=== PATIENT | male | born 1975 | race Caucasian/White ===

== ENCOUNTER 2017-02-03 07:04 | Observation (INO) | payer OTHER ==
[2017-02-03] MEDS ORDERED: RX INFO: IV CONTRAST WAS GIVEN 1 EACH MISC MISCELLANE PRN (07:42)
[2017-02-03] MEDS ORDERED: SODIUM CHLORIDE 0.9% 1,000 ML IV STA (07:42)
[2017-02-03] MEDS ORDERED: PANTOPRAZOLE 40 MG/10 ML VIAL IVP STA (07:42)
[2017-02-03] MEDS ORDERED: HYDROmorphone 1 MG/ML 1 ML SYRINGE IVP STA (07:42)
--- NOTE | 2017-02-03 07:47 | ED ---
General Adult HPI - General Chief complaint: Abdominal Pain Stated complaint: Abdominal Pain Time Seen by Provider: 02/03/17 07:25 Source: patient, RN notes reviewed Mode of arrival: ambulatory Limitations: no limitations - History of Present Illness Initial comments: Patient is a pleasant 41-year-old male presenting to the emergency department complaining of abdominal discomfort. Symptoms have progressed over the past week. Some nausea. No constipation or diarrhea. Patient has had bloody stools however. Discomfort is mostly in the epigastric region. No anorexia. No fever. Patient does have history of diverticulitis with bowel resection. - Related Data Home Medications Medication Instructions Recorded Confirmed No Known Home Medications [No 02/03/17 02/03/17 Known Home Medications] Allergies Allergy/AdvReac Type Severity Reaction Status Date / Time No Known Allergies Allergy Verified 02/03/17 07:58 Review of Systems ROS Statement: Those systems with pertinent positive or pertinent negative responses have been documented in the HPI. ROS Other: All systems not noted in ROS Statement are negative. Constitutional: Denies: fever Eyes: Denies: eye pain ENT: Denies: ear pain Respiratory: Denies: cough Cardiovascular: Denies: chest pain Endocrine: Denies: fatigue Gastrointestinal: Reports: abdominal pain, nausea, hematochezia Genitourinary: Denies: dysuria Musculoskeletal: Denies: back pain Skin: Denies: lesions Neurological: Denies: headache Past Medical History Past Medical History: Osteoarthritis (OA) Additional Past Medical History / Comment(s): HX OF Diverticulitis, colitis, ARTHIRITIS IN NECK. History of Any Multi-Drug Resistant Organisms: MRSA Date of last positivie culture/infection: neck MDRO Source:: 2012 Past Surgical History: Orthopedic Surgery Additional Past Surgical History / Comment(s): NOSE SURGERY. L ANKLE SURGERY 1998. [id number] 07/22/16, 08-08-16 LOW ANT BOWEL RESECTION Additional Past Anesthesia/Blood Transfusion Reaction / Comment(s): PT HAS NO ADVERSE REACTION TO ANESTHESIA EXCEPT A"FIGHTER" WHEN I WAKE UP. NEVER RECEIVED BLOOD PRODUCTS. Past Psychological History: Anxiety Smoking Status: Current every day smoker Past Alcohol Use History: Occasional Additional Past Alcohol Use History / Comment(s): SMOKES 1PPD FOR PAST 24 YRS Past Drug Use History: Marijuana Additional Drug Use History / Comment(s): DAILY MARIJUANA SMOKER-10 JOINTS A DAY. - Past Family History Father Family Medical History: No Reported History Mother Family Medical History: Diabetes Mellitus General Exam Limitations: no limitations General appearance: alert, in no apparent distress Head exam: Present: atraumatic Eye exam: Present: normal appearance, PERRL ENT exam: Present: normal oropharynx Neck exam: Present: normal inspection Respiratory exam: Present: normal lung sounds bilaterally Cardiovascular Exam: Present: regular rate, normal rhythm GI/Abdominal exam: Present: soft. Absent: tenderness Rectal exam: Present: normal inspection (Limited stool on exam) Extremities exam: Present: normal inspection. Absent: pedal edema, calf tenderness Neurological exam: Present: alert Psychiatric exam: Present: normal affect, normal mood Skin exam: Absent: rash Course Vital Signs 02/03/17 07:10 Temperature 98.0 F Pulse Rate 80 Respiratory 18 Rate Blood Pressure 136/92 O2 Sat by Pulse 98 Oximetry Medical Decision Making - Medical Decision Making Patient reexamined and resting comfortably in bed. Abdomen soft and nontender. Case discussed in detail with Dr. Jensen, who will admit his patient with consult with Dr. Zamora - Lab Data Result diagrams: 02/03/17 08:00 02/03/17 08:00 Lab Results 02/03/17 02/03/17 02/03/17 Range/Units 08:00 08:00 08:00 WBC 7.0 (3.8-10.6) k/uL RBC 4.82 (4.30-5.90) m/uL Hgb 14.3 (13.0-17.5) gm/dL Hct 43.5 (39.0-53.0) % MCV 90.4 (80.0-100.0) fL MCH 29.7 (25.0-35.0) pg MCHC 32.8 (31.0-37.0) g/dL RDW 13.7 (11.5-15.5) % Plt Count 251 (150-450) k/uL Neutrophils % 62 % Lymphocytes % 28 % Monocytes % 6 % Eosinophils % 2 % Basophils % 1 % Neutrophils # 4.3 (1.3-7.7) k/uL Lymphocytes # 1.9 (1.0-4.8) k/uL Monocytes # 0.4 (0-1.0) k/uL Eosinophils # 0.2 (0-0.7) k/uL Basophils # 0.0 (0-0.2) k/uL PT 10.1 (9.0-12.0) sec INR 1.0 (<1.1) APTT 30.0 (22.0-30.0) sec Sodium 144 (137-145) mmol/L Potassium 4.3 (3.5-5.1) mmol/L Chloride 109 H (98-107) mmol/L Carbon Dioxide 26 (22-30) mmol/L Anion Gap 9 mmol/L BUN 11 (9-20) mg/dL Creatinine 0.84 (0.66-1.25) mg/dL Est GFR (MDRD) Af Amer >60 (>60 ml/min/1.73 sqM) Est GFR (MDRD) Non-Af >60 (>60 ml/min/1.73 sqM) Glucose 86 (74-99) mg/dL Calcium 8.9 (8.4-10.2) mg/dL Total Bilirubin 0.4 (0.2-1.3) mg/dL AST 24 (17-59) U/L ALT 31 (21-72) U/L Alkaline Phosphatase 72 (38-126) U/L Total Protein 6.8 (6.3-8.2) g/dL Albumin 4.0 (3.5-5.0) g/dL Amylase 65 (30-110) U/L Lipase 171 (23-300) U/L Stool Occult Blood (Negative) 02/03/17 Range/Units 08:10 WBC (3.8-10.6) k/uL RBC (4.30-5.90) m/uL Hgb (13.0-17.5) gm/dL Hct (39.0-53.0) % MCV (80.0-100.0) fL MCH (25.0-35.0) pg MCHC (31.0-37.0) g/dL RDW (11.5-15.5) % Plt Count (150-450) k/uL Neutrophils % % Lymphocytes % % Monocytes % % Eosinophils % % Basophils % % Neutrophils # (1.3-7.7) k/uL Lymphocytes # (1.0-4.8) k/uL Monocytes # (0-1.0) k/uL Eosinophils # (0-0.7) k/uL Basophils # (0-0.2) k/uL PT (9.0-12.0) sec INR (<1.1) APTT (22.0-30.0) sec Sodium (137-145) mmol/L Potassium (3.5-5.1) mmol/L Chloride (98-107) mmol/L Carbon Dioxide (22-30) mmol/L Anion Gap mmol/L BUN (9-20) mg/dL Creatinine (0.66-1.25) mg/dL Est GFR (MDRD) Af Amer (>60 ml/min/1.73 sqM) Est GFR (MDRD) Non-Af (>60 ml/min/1.73 sqM) Glucose (74-99) mg/dL Calcium (8.4-10.2) mg/dL Total Bilirubin (0.2-1.3) mg/dL AST (17-59) U/L ALT (21-72) U/L Alkaline Phosphatase (38-126) U/L Total Protein (6.3-8.2) g/dL Albumin (3.5-5.0) g/dL Amylase (30-110) U/L Lipase (23-300) U/L Stool Occult Blood Positive (Negative) - Radiology Data Radiology results: report reviewed (Computed tomography scan of the abdomen pelvis shows diverticulosis without acute diverticulitis. Some narrowing at the rectosigmoid anastomosis is not excluded.) Disposition Clinical Impression: Lower GI hemorrhage Disposition: ADMITTED IP TO THIS HOSP
[2017-02-03 08:23] LABS: Basophils % (A) 1 %; CHCM 33.3; Eosinophils # (A) 0.2 k/uL (0-0.7); Eosinophils % (A) 2 %; HCT 43.5 % (39.0-53.0); HDW 2.41; HGB 14.3 gm/dL (13.0-17.5); Luc % (Auto) 2; Lymphocytes # (A) 1.9 k/uL (1.0-4.8); Lymphocytes % (A) 28 %; MCH 29.7 pg (25.0-35.0); MCHC 32.8 g/dL (31.0-37.0); MCV 90.4 fL (80.0-100.0); Mean Platelet Volume 7.5; Monocytes # (A) 0.4 k/uL (0-1.0); Monocytes % (A) 6 %; Neutrophils # (A) 4.3 k/uL (1.3-7.7); Neutrophils % (A) 62 %; RBC 4.82 m/uL (4.30-5.90); RDW 13.7 % (11.5-15.5); WBC (Perox) 6.93
[2017-02-03 08:29] LABS: Prothrombin Time 10.1 sec (9.0-12.0)
[2017-02-03 08:36] LABS: ALT 31 U/L (21-72); AST 24 U/L (17-59); Alkaline Phosphatase 72 U/L (38-126); Amylase 65 U/L (30-110); Anion Gap 9 mmol/L; Blood Urea Nitrogen 11 mg/dL (9-20); Calcium 8.9 mg/dL (8.4-10.2); Carbon Dioxide 26 mmol/L (22-30); Chloride 109 mmol/L (98-107); Glucose 86 mg/dL (74-99); Non-African American GFR(MDRD) >60 (>60 ml/min/1.73 sqM); Potassium 4.3 mmol/L (3.5-5.1); Sodium 144 mmol/L (137-145); Total Bilirubin 0.4 mg/dL (0.2-1.3); Total Protein 6.8 g/dL (6.3-8.2)
--- NOTE | 2017-02-03 08:53 | CT ---
EXAMINATION TYPE: CT abdomen pelvis w con DATE OF EXAM: 02/03/2017 8:40 AM COMPARISON: 07/22/2016 INDICATION: History of diverticulitis and Crohns disease DLP: 1677 mGycm, Automated exposure control for dose reduction was used. CONTRAST: 100 ml mL of Omnipaque 300. Study performed without Oral Contrast TECHNIQUE: Axial images were obtained from above the diaphragm to the pubic rami in the axial plane a t 5 mm thick sections. Reconstructed images are reviewed on the computer in the coronal plane. FINDINGS: Limited CT sections are obtained the lung bases. The lung bases are clear. CT ABDOMEN: Liver: Normal Spleen: Calcification is within the spleen compatible with a tiny granuloma. Pancreas: Normal Adrenal glands: The adrenal glands are normal. Gallbladder: Normal Kidneys: No masses are evident. No hydronephrosis is present. No cysts are present. Aorta: Normal Inferior vena cava: Normal. CT PELVIS: Loops of bowel within the abdomen and pelvis are normal. Study is performed without oral contrast limiting the evaluation of bowel loops. Some fecal debris is within the colon. Scattered diverticuli are within the proximal sigmoid colon. There is an anastomosis within the mid to distal sigmoid colo n. Some narrowing is present just distal to the anastomosis. A large fecal bolus at the level the rec ashu. There is some low density within the sigmoid colon just proximal to the anastomosis. Series 3 im age 70. This could be a minimal amount of fluid. Underlying mass is not excluded. No perirectal fat a bnormality is evident. No lymphadenopathy is evident within the pelvis. Appendix: Normal as visualized. Urinary bladder: Normal. Genitourinary structures: Prostate appears normal Osseous structures: There are couple of sclerotic areas along the superior acetabulum on the left. [place] in sclerotic metastases could be considered. These were present previously and appear stab le. Osseous structures otherwise appear unremarkable. IMPRESSIONS: 1. Some narrowing at the recto sigmoid anastomosis is not excluded. Follow-up of this area is recomm ended. Large fecal bolus at the rectum suggesting high-grade narrowing is unlikely present. No obstru ction is identified. 2. Diverticulosis without acute diverticulitis proximal to mid sigmoid colon.
[2017-02-03] MEDS ORDERED: MORPHINE SULFATE 4 MG/ML SYRINGE IV PRN (09:12)
[2017-02-03] MEDS ORDERED: NALOXONE 0.4 MG/ML 1 ML VIAL IV PRN (09:12)
[2017-02-03] MEDS ORDERED: SODIUM CHLORIDE 0.9% 1,000 ML IV SCH (09:15)
[2017-02-03 10:49] LABS: Appearance,Urine Clear (Clear); Bilirubin,Urine Negative (Negative); Glucose,Urine (UA) Negative (Negative); Ketones,Urine Negative (Negative); Leukocyte Esterase,Urine Negative (Negative); Nitrite,Urine Negative (Negative); PH, Urine 6.5 (5.0-8.0); Protein,Urine Negative (Negative); Specific Gravity,Urine 1.022 (1.001-1.035); UA Billing (MACRO vs. MICRO) CHEM; Urobilinogen,Urine <2.0 mg/dL (<2.0)
[2017-02-03] MEDS ORDERED: ACETAMINOPHEN TAB 325 MG TAB PO PRN (11:29)
[2017-02-03] MEDS ORDERED: ONDANSETRON 4 MG/2 ML VIAL IVP PRN (11:29)
[2017-02-03 15:02] LABS: Basophils % (A) 0 %; CH 30.5; CHCM 33.5; Eosinophils # (A) 0.2 k/uL (0-0.7); Eosinophils % (A) 3 %; HCT 41.8 % (39.0-53.0); HDW 2.48; HGB 13.9 gm/dL (13.0-17.5); Luc # (Auto) 0.12; Luc % (Auto) 2; Lymphocytes # (A) 2.6 k/uL (1.0-4.8); Lymphocytes % (A) 41 %; MCH 30.4 pg (25.0-35.0); MCHC 33.2 g/dL (31.0-37.0); MCV 91.6 fL (80.0-100.0); Mean Platelet Volume 7.9; Monocytes # (A) 0.4 k/uL (0-1.0); Monocytes % (A) 6 %; Neutrophils # (A) 3.1 k/uL (1.3-7.7); Neutrophils % (A) 49 %; RBC 4.56 m/uL (4.30-5.90); RDW 13.4 % (11.5-15.5); WBC 6.4 k/uL (3.8-10.6)
--- NOTE | 2017-02-03 15:16 | P.HPIM ---
History of Present Illness H&P Date: 02/03/17 Chief Complaint: pain This is a 41-year-old gentleman with past medical history noted below significant for partial colectomy in July 2016 and presented to the hospital with acute epigastric abdominal pain. Patient said his pain started a few days ago is being getting progressively worse. Pain was associated with nausea but no vomiting. Over the past few days patient had 2 episodes of diarrhea but otherwise is having normal bowel movement. His pain is not radiating anywhere in his abdomen. He denies any black stool or blood in stool. He denies any dizziness or lightheadedness. He presented to the emergency room for further evaluation. Lab work was within acceptable range. Computed tomography scan of the abdomen showed no significant acute findings. Hemoccult test was positive so patient was admitted to observation. Repeat CBC showed stable hemoglobin. Review of Systems Review of system: 14 points review of systems were obtained and were negative except to what were mentioned in the HPI. Past Medical History Past Medical History: GI Bleed, Osteoarthritis (OA) Additional Past Medical History / Comment(s): HX OF Diverticulitis, colitis, ARTHIRITIS IN NECK, lower GI bleeds. History of Any Multi-Drug Resistant Organisms: MRSA Date of last positivie culture/infection: neck MDRO Source:: 2012 Past Surgical History: Bowel Resection, Orthopedic Surgery Additional Past Surgical History / Comment(s): NASAL SURGERY. L ANKLE SURGERY 1998. COLONOSCOPies with last one 07/22/16, 08-08-16 LOW ANT BOWEL RESECTION Additional Past Anesthesia/Blood Transfusion Reaction / Comment(s): PT HAS NO ADVERSE REACTION TO ANESTHESIA EXCEPT A"FIGHTER" WHEN I WAKE UP. NEVER RECEIVED BLOOD PRODUCTS. Past Psychological History: Anxiety Additional Psychological History / Comment(s): Pt lives with significant other. He is independent. Smoking Status: Current every day smoker Past Alcohol Use History: Occasional Additional Past Alcohol Use History / Comment(s): SMOKES 1PPD since 1991 Past Drug Use History: Marijuana Additional Drug Use History / Comment(s): DAILY MARIJUANA SMOKER-10 JOINTS A DAY. - Past Family History Father Family Medical History: No Reported History Additional Family Medical History / Comment(s): Father is healthy. Mother Family Medical History: Diabetes Mellitus Additional Family Medical History / Comment(s): Mother is a borderline diabetic. Medications and Allergies Home Medications Medication Instructions Recorded Confirmed Type No Known Home Medications [No 02/03/17 02/03/17 History Known Home Medications] Allergies Allergy/AdvReac Type Severity Reaction Status Date / Time No Known Allergies Allergy Verified 02/03/17 07:58 Physical Exam Vitals: Vital Signs Temp Pulse Pulse Resp BP BP Pulse Ox 02/03/17 12:00 97.5 F L 64 16 134/68 98 02/03/17 10:44 61 16 137/89 99 02/03/17 10:00 97.0 F L 70 16 149/84 98 Intake and Output 02/03/17 02/03/17 02/03/17 06:59 14:59 22:59 Intake Total 300 Balance 300 Intake: Oral 300 Other: Voiding Method Toilet Weight 111.9 kg Patient Weight 02/04/17 06:59 Weight 111.9 kg General: The patient is awake and alert, in no distress, and does not appear acutely ill. Eye: extra-ocular movements are intact; there is normal conjunctiva bilaterally. . Neck: The neck is supple, there is no tenderness or JVD. Cardiovascular: Normal S1-S2, no S3-S4, no murmurs. Respiratory: Lungs clear to auscultation bilaterally with no wheezes rhonchi or rales. Gastrointestinal: Abdomen is soft, nontender, nondistended, with no organomegaly. . Musculoskeletal: Normal ROM, no tenderness, There is no pedal edema. Neurological: There are no obvious motor or sensory deficits. Speech is normal. Skin: Skin is warm and dry and no rashes or lesions are noted. Results CBC & Chem 7: 02/03/17 14:50 02/03/17 08:00 Thrombosis Risk Factor Assmnt - Choose All That Apply Any of the Below Risk Factors Present?: Yes Each Factor Represents 1 point: Hx of IBD, Obesity (BMI >25) Other Risk Factors: No Other congenital or acquired thrombophilia - If yes, enter type in comment: No Thrombosis Risk Factor Assessment Total Risk Factor Score: 2 Thrombosis Risk Factor Assessment Level: Low Risk Assessment and Plan Plan: 1. Acute nausea, epigastric discomfort, and diarrhea, now symptoms have improved. May be attributed to acute viral gastroenteritis. We'll continue supportive care, IV fluids, antiemetic, and pain control. 2. History of recurrent diverticulitis status post Anterior resection in July 2017 3. Positive Hemoccult test with no evidence of ongoing bleed. Hemoglobin stable. Awaiting evaluation by general surgery
[2017-02-03] MEDS: MORPHINE SULFATE 4 MG/ML SYRINGE IV PRN ×3 (15:36→23:58)
--- NOTE | 2017-02-03 16:24 | P.GSCN ---
History of Present Illness Consult date: 02/03/17 Reason for Consult: Abdominal pain History of present illness: Patient brought to the hospital with complaints of epigastric abdominal pain. This is associated with nausea and anorexia. No vomiting. No history of similar events in the past. He did have a sigmoid colectomy done for diverticulitis in the fall. He said this is a different type of feeling. Denies constipation despite a CAT scan suggesting maybe some degree of constipation. Says he has 2-3 bowel movement per day. He did a recent black colored stool. Pain began about 1 week ago. No history of ulcer disease in the past. No prior upper endoscopy. Patient's white blood cell count and hemoglobin are stable. He was heme positive. Past Medical History Past Medical History: GI Bleed, Osteoarthritis (OA) Additional Past Medical History / Comment(s): HX OF Diverticulitis, colitis, ARTHIRITIS IN NECK, lower GI bleeds. History of Any Multi-Drug Resistant Organisms: MRSA Year Discovered:: neck MDRO Source:: 2012 Past Surgical History: Bowel Resection, Orthopedic Surgery Additional Past Surgical History / Comment(s): NASAL SURGERY. L ANKLE SURGERY 1998. COLONOSCOPies with last one 07/22/16, 08-08-16 LOW ANT BOWEL RESECTION Additional Past Anesthesia/Blood Transfusion Reaction / Comm: PT HAS NO ADVERSE REACTION TO ANESTHESIA EXCEPT A"FIGHTER" WHEN I WAKE UP. NEVER RECEIVED BLOOD PRODUCTS. Past Psychological History: Anxiety Additional Psychological History / Comment(s): Pt lives with significant other. He is independent. Smoking Status: Current every day smoker Past Alcohol Use History: Occasional Additional Past Alcohol Use History / Comment(s): SMOKES 1PPD since 1991 Past Drug Use History: Marijuana Additional Drug Use History / Comment(s): DAILY MARIJUANA SMOKER-10 JOINTS A DAY. - Past Family History Father Family Medical History: No Reported History Additional Family Medical History / Comment(s): Father is healthy. Mother Family Medical History: Diabetes Mellitus Additional Family Medical History / Comment(s): Mother is a borderline diabetic. Medications and Allergies Home Medications Medication Instructions Recorded Confirmed Type No Known Home Medications [No 02/03/17 02/03/17 History Known Home Medications] Allergies Allergy/AdvReac Type Severity Reaction Status Date / Time No Known Allergies Allergy Verified 02/03/17 07:58 Surgical - Exam Vital Signs Temp Pulse Resp BP Pulse Ox 98.0 F 80 18 136/92 98 02/03/17 07:10 02/03/17 07:10 02/03/17 07:10 02/03/17 07:10 02/03/17 07:10 Physical exam: General: Well-developed, well-nourished HEENT: Normocephalic, sclerae nonicteric Abdomen: Mild epigastric tenderness, nondistended Extremities: No edema Neuro: Alert and oriented Results - Labs 02/03/17 14:50 02/03/17 08:00 Assessment and Plan (1) Abdominal pain Narrative/Plan: The patient I discussed the options. We decided to proceed with upper endoscopy tomorrow to evaluate for possible ulcer disease. Continue antiacid therapy for now. Status: Acute
[2017-02-03] MEDS: LORazepam 0.5 MG TAB PO PRN (17:26)
[2017-02-03] MEDS: NICOTINE 14MG/24HR PATCH TRANSDERM SCH (17:31)
[2017-02-03] MEDS ORDERED: LORazepam 0.5 MG TAB PO SCH (21:00)
[2017-02-04] MEDS: MORPHINE SULFATE 4 MG/ML SYRINGE IV PRN ×2 (03:46→08:32)
[2017-02-04 08:05] VITALS: TEMP 97.5
[2017-02-04 08:11] LABS: Basophils % (A) 1 %; CH 30.6; CHCM 33.5; Eosinophils # (A) 0.2 k/uL (0-0.7); Eosinophils % (A) 3 %; HCT 45.5 % (39.0-53.0); HGB 15.1 gm/dL (13.0-17.5); Luc # (Auto) 0.14; Luc % (Auto) 2; Lymphocytes # (A) 2.3 k/uL (1.0-4.8); Lymphocytes % (A) 36 %; MCH 30.4 pg (25.0-35.0); MCHC 33.1 g/dL (31.0-37.0); MCV 91.6 fL (80.0-100.0); Mean Platelet Volume 7.5; Monocytes # (A) 0.3 k/uL (0-1.0); Monocytes % (A) 5 %; Neutrophils # (A) 3.4 k/uL (1.3-7.7); Neutrophils % (A) 54 %; RBC 4.97 m/uL (4.30-5.90); RDW 13.6 % (11.5-15.5); WBC 6.4 k/uL (3.8-10.6); WBC (Perox) 6.63
[2017-02-04] MEDS: NICOTINE 14MG/24HR PATCH TRANSDERM SCH (08:33)
[2017-02-04] MEDS: LORazepam 0.5 MG TAB PO PRN (08:46)
[2017-02-04] MEDS ORDERED: NICOTINE 14MG/24HR PATCH TRANSDERM SCH (09:00)
[2017-02-04] MEDS ORDERED: PANTOPRAZOLE 40 MG/10 ML VIAL IV SCH (09:00)
--- NOTE | 2017-02-04 11:02 | P.PN ---
Subjective Patient continues to complain of significant epigastric pain. Hemoglobin is stable. No vomiting. Objective - Vital Signs Vital signs: Vital Signs Temp 97.5 F L 02/04/17 08:00 Pulse 61 02/04/17 08:00 Resp 18 02/04/17 08:00 BP 143/97 02/04/17 08:00 Pulse Ox 97 02/04/17 08:00 Intake & Output 02/03/17 02/04/17 02/04/17 18:59 06:59 18:59 Intake Total 540 Balance 540 Weight 111.9 kg Intake: Oral 540 Other: Voiding Method Toilet Toilet Toilet # Voids 1 - Exam General: The patient is awake and alert, in no distress Eye: there is normal conjunctiva bilaterally. Neck: The neck is supple, there is no JVD. Cardiovascular: Normal S1-S2, no S3-S4, no murmurs. Respiratory: Lungs clear to auscultation bilaterally Gastrointestinal: Abdomen is soft, nontender Musculoskeletal: There is no pedal edema. Neurological:. Speech is normal. Skin: Skin is warm and dry - Labs CBC & Chem 7: 02/04/17 07:43 02/03/17 08:00 Assessment and Plan Plan: 1. Acute nausea, epigastric discomfort, and diarrhea, now symptoms have improved. May be attributed to acute viral gastroenteritis. We'll continue supportive care, IV fluids, antiemetic, and pain control. 2. History of recurrent diverticulitis status post Anterior resection in July 2017 3. Positive Hemoccult test with no evidence of ongoing bleed. Hemoglobin stable. Patient was seen and evaluated by general surgery. Plan for EGD later on today.
[2017-02-04] MEDS ORDERED: PROPOFOL 10 MG/ML 20 ML VIAL IV ONE (11:57)
[2017-02-04] MEDS ORDERED: KETAMINE 10 MG/ML 20 ML VIAL ONE (11:57)
[2017-02-04] MEDS ORDERED: LIDOCAINE 1% INJ 10MG/ML (20 ML MDV) ONE (11:57)
[2017-02-04] MEDS ORDERED: MIDAZOLAM 2 MG/2 ML VIAL ONE (11:57)
[2017-02-04] MEDS ORDERED: IV FLUID CONTINUATION 100 ML IV ONE (12:00)
--- NOTE | 2017-02-04 12:20 | P.PCN ---
Date of Procedure: 02/04/17 Procedure(s) Performed: Preoperative Dx: Abdominal pain Postoperative Dx: Duodenitis, gastritis Procedure: EGD with Bx Anesthesia: Sedation Endoscopist: Dr. Fry Specimens: , Antrum Endoscopic Procedure: The patient was on the endoscopy table in the left decubitus position. The Olympus gastroscope was inserted into the oropharynx and passed under direct visualization to the region of the third portion of the duodenum. From that point the scope was slowly withdrawn inspecting all surfaces carefully. There was mild duodenitis. A few small erosions were seen without large ulceration. A biopsy of the duodenum took place. The pylorus was widely patent. The stomach was carefully inspected. There was gastritis present as well. A biopsy of the antrum took place to rule out H. pylori. Retroflexion revealed a normal hiatus. The esophagus was then carefully examined. There were no neoplastic inflammatory or polypoid lesions throughout the visualized esophagus. The patient was then taken to the recovery room in stable condition per anesthesia guidelines. Recommendations: Continue antiacid therapy. Resume diet. Stable for discharge.
[2017-02-04] MEDS ORDERED: IV FLUID CONTINUATION 1,000 ML IV ONE (12:21)
[2017-02-04 12:56] VITALS: RESP 16
[2017-02-04 13:15] VITALS: BP 139/96; PULSE 67
== END 2017-02-04 15:42 | disposition left against medical advice (07) ==
LOC: EC 07:04 → 3OBS 09:13
PROVIDERS: ADMIT Internal Medicine; ATTEND Internal Medicine
DX: K29.70 Gastritis, unspecified, without bleeding (principal); K29.80 Duodenitis without bleeding; K57.92 Diverticulitis of intestine, part unspecified, without perforation or abscess without bleeding; F17.200 Nicotine dependence, unspecified, uncomplicated; F41.9 Anxiety disorder, unspecified; Z90.49 Acquired absence of other specified parts of digestive tract; F12.90 Cannabis use, unspecified, uncomplicated; R63.0 Anorexia
CPT/HCPCS: 96374 ×2; 96375 ×3; 96361 ×4; 99285 ×2; 36415; 88305; 80053; 82150; 83690; 85025 ×2; 85610; 85730; 82272; 81003; 88342; 74177; 43239; G0378 ×2; S4990 ×2; J2250; J2270 ×2; J2001; J1170; Q9967; J2704; C9113 ×2; 96376

== ENCOUNTER → 2018-12-03 | Outpatient (CLI) | payer OTHER ==
--- NOTE | 2018-12-03 19:38 | CONS ---
CONSULTATION DATE OF SERVICE: 12/03/2018 This patient is a 43-year-old gentleman who has been evaluated in the sleep center for possible obstructive sleep apnea-hypopnea syndrome. HISTORY OF PRESENT ILLNESS/SLEEP-WAKE EVALUATION: Patient's usual sleep schedule is from 10 p.m. to 5 or 6 a.m. basically 7 days a week. No problem with falling asleep, although he has a TV set in the bedroom. He sleeps in different positions, usually on his side, with snoring, witnessed episodes by his of stopped breathing during sleep. He wakes up from sleep around 10 times with dry mouth, sweating, panic attacks. He has multiple episodes of nocturia. He also moves constantly during sleep, possibly [id number] movements. Sometimes the patient starts to see his dreams right after closing his eyes. No history of sleep paralysis or cataplexy. In the morning, patient wakes up tired, has difficulties paying attention, falling asleep during the day, worries about his sleep, has problems with memory, concentration, irritability, anxiety. [place] Sleepiness Scale is significantly increased to 20. PAST MEDICAL HISTORY: Positive for: 1. Diverticulitis. 2. Nasal cyst. 3. Left ankle fracture. SURGICAL HISTORY: 1. Bowel resection for diverticulitis in 2016. 2. Multiple nasal surgeries for cysts in childhood. MEDICATIONS: None. SOCIAL HISTORY: Positive for smoking for about 25 pack/years. Alcohol consumption rarely. FAMILY HISTORY: Hypertension, angina, heart problems, hyperlipidemia, arthritis, emphysema, snoring, pneumonia, diabetes. REVIEW OF SYSTEMS: Multiple awakenings from sleep. Significant excessive daytime sleepiness. PHYSICAL EXAMINATION: GENERAL: A pleasant gentleman without distress. VITAL SIGNS: BP 161/105, HR 87, RR 16, height 6 feet 1 inch, weight 278, body mass index 36.6, temperature 98.1, oxygen saturation at room air 95%. HEENT: PERRLA, EOMI. Evaluation of oropharynx showed tongue protrudes midline. Low position of soft palate. Telescopic uvula. Tonsils slightly hypertrophic, present bilaterally. Restriction of nasal breathing. NECK: Supple. No JVD. Thyroid is not palpable. Wide neck; 20 inches in circumference. LUNGS: Clear to percussion and to auscultation. Good air exchange. No wheezing or rhonchi. HEART: S1, S2 regular. No murmurs, gallops or rubs. ABDOMEN: Obese. EXTREMITIES: No clubbing or cyanosis. IMPROVEMENT LEADER: Awake, alert, and oriented X3. Cranial nerves 2 to 7 intact. There is no fasciculation or atrophy. noted. No focal deficits observed. IMPRESSION: 1. Snoring, witnessed episodes of stopped breathing during sleep, small oropharyngeal air space, wide neck, sleepiness; obstructive sleep apnea-hypopnea syndrome. 2. Significant excessive daytime sleepiness. [place] Sleepiness Scale is 20, dictating necessity to include hypersomnia and narcolepsy in the differential diagnosis, especially with positive history of hypnagogic hallucinations. 3. Obesity; body mass index 36.6. 4. History of diverticulitis, status post bowel resection in 2016. 5. Status post recent fracture of right elbow with a fracture of the radius. 6. Restriction of nasal breathing. 7. Status post multiple nasal surgeries for nasal cysts in childhood. 8. Smoker for 25 pack/years. PLAN: 1. Polysomnography for evaluation of patient's breathing during sleep. 2. CPAP/BiPAP titration if sleep study confirms obstructive sleep apnea-hypopnea syndrome. 3. Preferable position during sleep on the side. 4. No driving if patient feels any sleepiness. 5. I will see patient for follow up visit to explain results of testing and following plan. 6. We may consider multiple sleep latency test if treatment of sleep apnea does not fix the patient's excessive daytime sleepiness. Sincerely, Sridhar Barrow MD, PhD, FAASM Diplomat of [place] [employer] [employer] Director Of [facility] [place] MMODL / IJN: [id number] /
== END | disposition home or self-care (01) ==
LOC: SLEEP 13:37
PROVIDERS: ATTEND Internal Medicine
DX: G47.33 Obstructive sleep apnea (adult) (pediatric) (principal); E66.9 Obesity, unspecified; F17.210 Nicotine dependence, cigarettes, uncomplicated; Z68.36 Body mass index [BMI] 36.0-36.9, adult; Z87.81 Personal history of (healed) traumatic fracture; Z87.19 Personal history of other diseases of the digestive system; Z90.3 Acquired absence of stomach [part of]; Z98.890 Other specified postprocedural states
CPT/HCPCS: 99211

== ENCOUNTER 2018-12-07 08:41 | Day surgery (SDC) | payer OTHER ==
[2018-12-04 08:28] VITALS: BMI 23.5
[~2018-12-07 08:41] MED LIST: LACTATED RINGERS 1,000 ML IV SCH; LIDOCAINE 1% 20 ML VIAL (10MG/ML) FOR IV START INTRADERMA PRN; MIDAZOLAM (PF) 2 MG/2 ML VIAL IV PRN
[2018-12-07 09:32] VITALS: TEMP 97.7
--- NOTE | 2018-12-07 10:01 | P.GSHP ---
History of Present Illness H&P Date: 12/07/18 Chief Complaint: History of diverticulitis This is a 43-year-old male who presents today for colonoscopy. Patient had a previous history of diverticulitis. Past Medical History Past Medical History: GI Bleed, Osteoarthritis (OA) Additional Past Medical History / Comment(s): HX OF Diverticulitis, colitis, testing for sleep apnea., states broken elbow-following up with History of Any Multi-Drug Resistant Organisms: MRSA Date of last positivie culture/infection: neck MDRO Source:: 2012 Past Surgical History: Bowel Resection, Orthopedic Surgery Additional Past Surgical History / Comment(s): NASAL SURGERY. L ANKLE SURGERY 1998. , LOW ANT BOWEL RESECTION (07/2016) Past Anesthesia/Blood Transfusion Reactions: Previous Problems w/ Anesthesia Additional Past Anesthesia/Blood Transfusion Reaction / Comment(s): STATES THEY HAD TO WAKE HIM UP TO BREATHE- THOUGHT IT WAS DUE TO SLEEP APNEA. Past Psychological History: Anxiety Additional Psychological History / Comment(s): Pt lives with significant other. He is independent. Smoking Status: Heavy tobacco smoker Past Alcohol Use History: Occasional Additional Past Alcohol Use History / Comment(s): SMOKES 1PPD since 1991 Past Drug Use History: Marijuana Additional Drug Use History / Comment(s): CURRENT MARIJUANA USE - Past Family History Father Family Medical History: No Reported History Additional Family Medical History / Comment(s): Father is healthy. Mother Family Medical History: Diabetes Mellitus Additional Family Medical History / Comment(s): Mother is a borderline diabetic. Medications and Allergies Home Medications Medication Instructions Recorded Confirmed Type Ibuprofen [Motrin Ib] 200 mg PO DIRECTED PRN 12/04/18 12/07/18 History Allergies Allergy/AdvReac Type Severity Reaction Status Date / Time No Known Allergies Allergy Verified 12/07/18 08:49 Surgical - Exam Vital Signs Temp Pulse Resp BP Pulse Ox 97.7 F 79 16 158/89 98 12/07/18 08:57 12/07/18 08:57 12/07/18 08:57 12/07/18 08:57 12/07/18 08:57 - General well developed, well nourished, no distress - Eyes PERRL - ENT normal pinna - Neck no masses - Respiratory normal expansion - Cardiovascular Rhythm: regular - Abdomen Abdomen: soft, non tender Assessment and Plan Assessment: History of diverticula is. We'll perform colonoscopy.
[2018-12-07] MEDS ORDERED: LIDOCAINE 1% INJ 10MG/ML (20 ML MDV) ONE (10:02)
[2018-12-07] MEDS ORDERED: PROPOFOL 10 MG/ML 20 ML VIAL IV ONE (10:02)
[2018-12-07 10:49] VITALS: BP 141/93; PULSE 81; RESP 16
--- NOTE | 2018-12-07 11:22 | P.OP ---
Date of Procedure: 12/07/18 Preoperative Diagnosis: History of diverticulitis Postoperative Diagnosis: Diverticulosis, colon polyp Procedure(s) Performed: Colonoscopy Anesthesia: MAC Surgeon: Fahad Zamora Pathology: other (Rectal polyp) Condition: stable Disposition: PACU Description of Procedure: The patient's placed on the endoscopy table in the lateral position. He received IV sedation. Digital rectal exam was performed which revealed no abnormalities. Flexible colonoscope was then placed patient anus and passed throughout the colon. The patient had a rectal polyp this was removed with a forcep. The scope could not be advanced easily through the colorectal anastomosis. At this point decided to perform a barium enema. Scope was withdrawn. Patient top she will was sent to recovery room stable condition.
--- NOTE | 2018-12-09 13:20 | CDI ---
Outpatient Documentation Clarification Form Date: 12/09/18 CDS/Surveillance Inspector Name: Meghan Barrios Phone: If any questions, call Janice Russell [employer] at [phone] Patient Name: Jorge Castro Admit Date: 12/07/18 Discharge Date: 12/07/18 ATTENTION: The [facility] Coding Staff appreciate your assistance in clarifying documentation. Please respond to the clarification below the line at the bottom and electronically sign. The [facility] Coding staff will review the response and follow-up if needed. Please note: Queries are made part of the Legal Health Record. If you have any questions, please contact the [employer]. Dear Dr. Zamora, How far into the colon was the scope advanced? Thank you for your kind consideration. MTDD
== END 2018-12-07 10:58 | disposition home or self-care (01) ==
LOC: ORWHC2ENDO 08:41
PROVIDERS: ATTEND Surgery
DX: K62.1 Rectal polyp (principal); K57.30 Diverticulosis of large intestine without perforation or abscess without bleeding; Z98.0 Intestinal bypass and anastomosis status; Z90.49 Acquired absence of other specified parts of digestive tract; K52.9 Noninfective gastroenteritis and colitis, unspecified; M19.90 Unspecified osteoarthritis, unspecified site; F41.9 Anxiety disorder, unspecified; F17.210 Nicotine dependence, cigarettes, uncomplicated; Z86.14 Personal history of Methicillin resistant Staphylococcus aureus infection
CPT/HCPCS: 45331; 88305; J2001; J2704; 45380

== ENCOUNTER 2019-01-26 15:07 | Inpatient (IN) | payer OTHER ==
--- NOTE | 2019-01-26 15:15 | ED ---
Abdominal Pain HPI - General Chief Complaint: Abdominal Pain Stated Complaint: Abd pain Time Seen by Provider: 01/26/19 15:10 Source: patient Mode of arrival: ambulatory Limitations: no limitations - History of Present Illness Initial Comments: 44-year-old male presenting today for chief complaint of left lower abdominal pain. Patient states she has previous diagnosis of diverticulitis and had a bowel resection performed by Dr. payne in July 2016. Patient states he began experiencing the pain yesterday, he states it has been constant increasing in severity. Patient states he has felt gassy. States his stools been soft and normal denies liquid diarrhea. Denies melena or hematochezia. Denies vomiting. Denies fever chills or night sweats. Patient states this feels similar to his had diverticulitis in the past. Patient decided to present for evaluation. Patient states he did notice a small blood in the stools yesterday. Denies not icing blood today. Remaining review of systems negative, patient denies any recent shortness of breath, chest pain, back pain, numbness or tingling, dysuria or hematuria, constipation or diarrhea, headaches or visual changes, or any other complaints. - Related Data Home Medications Medication Instructions Recorded Confirmed Ibuprofen [Motrin Ib] 200 mg PO Q4H PRN 12/04/18 01/26/19 Allergies Allergy/AdvReac Type Severity Reaction Status Date / Time No Known Allergies Allergy Verified 01/26/19 15:52 Review of Systems ROS Statement: Those systems with pertinent positive or pertinent negative responses have been documented in the HPI. ROS Other: All systems not noted in ROS Statement are negative. Past Medical History Past Medical History: GI Bleed, Osteoarthritis (OA) Additional Past Medical History / Comment(s): HX OF Diverticulitis, colitis, ARTHIRITIS IN NECK, lower GI bleeds. History of Any Multi-Drug Resistant Organisms: MRSA Date of last positivie culture/infection: neck MDRO Source:: 2012 Past Surgical History: Bowel Resection Additional Past Surgical History / Comment(s): NASAL SURGERY. L ANKLE SURGERY 1998. COLONOSCOPies with last one 07/22/16, 08-08-16 LOW ANT BOWEL RESECTION Additional Past Anesthesia/Blood Transfusion Reaction / Comment(s): PT HAS NO ADVERSE REACTION TO ANESTHESIA EXCEPT A"FIGHTER" WHEN I WAKE UP. NEVER RECEIVED BLOOD PRODUCTS. Past Psychological History: Anxiety Smoking Status: Current every day smoker Past Alcohol Use History: None Reported Past Drug Use History: None Reported - Past Family History Father Family Medical History: No Reported History Additional Family Medical History / Comment(s): Father is healthy. Mother Family Medical History: Diabetes Mellitus Additional Family Medical History / Comment(s): Mother is a borderline diabetic. General Exam - General Exam Comments Initial Comments: General: The patient is awake and alert, appears uncomfortable. Eye: Pupils are equal, round and reactive to light, extra-ocular movements are intact. No nystagmus. There is normal conjunctiva bilaterally. No signs of icterus. Ears, nose, mouth and throat: There are moist mucous membranes and no oral lesions. Neck: The neck is supple, there is no tenderness or JVD. Cardiovascular: There is a regular rate and rhythm. No murmur, rub or gallop is appreciated. Respiratory: Lungs are clear to auscultation, respirations are non-labored, breath sounds are equal. No wheezes, stridor, rales, or rhonchi. Gastrointestinal: No noted diaphoresis, jaundice, pallor, protecting postures or squirming. Symmetrical pigmentation of abdomen without signs of inflammation. Large midline scar below the umbilicus. Umbilicus mildline, inverted without swelling. No dilated veins. Abdomen contour obese, no noted abdominal distent ion. No visible masses. No peristalsis, aortic pulsations, or ventral hernia. Bowel sounds audible in all 4 quadrants, unremarkable. Patient is diffusely tender to palpation of the lower abdomen left greater than right to both light and deep palpation no rigidity. Mild guarding. Liver edge, not palpable. Spleen edge, right and left kidney not palpable. Superior bladder margin non-tender. Special Testing: Negative Billingsley, Rovsing, McBurney, Laxmi, cutaneous hyperesthesia. Iliopsoas and obturator tests negative bilaterally. Negative Heel Jar test. No CVA tenderness. Digital rectal exam deferred. Negative parsons turners or cullens sign Musculoskeletal: Normal ROM, no tenderness. Strength 5/5. Sensation intact. Pulses equal bilaterally 2+. Neurological: A&O x 3. CN II-XII intact, There are no obvious motor or sensory deficits. Coordination appears grossly intact. Speech is normal. Skin: Skin is warm and dry and no rashes or lesions are noted. Psychiatric: Cooperative, appropriate mood & affect, normal judgment. Limitations: no limitations Course Vital Signs 01/26/19 01/26/19 15:08 17:07 Temperature 98.0 F 97.9 F Pulse Rate 97 83 Respiratory 22 18 Rate Blood Pressure 151/89 136/89 O2 Sat by Pulse 98 96 Oximetry Medical Decision Making - Medical Decision Making 43-year-old male past medical history of diverticulitis status post resection July 2018. Surgeon Dr. Zamora. After studies reveal leukocytosis. She states pain similar to when he had diverticulitis in the past. Left lower quadrant. Imaging studies reveal diverticulitis with complicated course developing abscesses less than 10 mm. At this time given the extent of diverticulitis patient will be admitted to patient surgeon, patient placed on Zosyn. Patient ordered clear liquid diet as ordered per surgeon. Patient has when necessary antiemetics as well as pain medication ordered. Medicine on consult. Patient was admitted after speaking with accepting admitting provider . I did discuss the case with attending provider Dr. Linares who reviewed labs and imaging studies. Agreeable with plan and admission. - Lab Data Result diagrams: 01/26/19 15:35 01/26/19 15:35 Lab Results 01/26/19 01/26/19 01/26/19 Range/Units 15:35 15:35 16:36 WBC 15.5 H (3.8-10.6) k/uL RBC 4.71 (4.30-5.90) m/uL Hgb 14.1 (13.0-17.5) gm/dL Hct 41.8 (39.0-53.0) % MCV 88.7 (80.0-100.0) fL MCH 30.0 (25.0-35.0) pg MCHC 33.8 (31.0-37.0) g/dL RDW 13.9 (11.5-15.5) % Plt Count 286 (150-450) k/uL Neutrophils % 76 % Lymphocytes % 17 % Monocytes % 5 % Eosinophils % 2 % Basophils % 0 % Neutrophils # 11.7 H (1.3-7.7) k/uL Lymphocytes # 2.6 (1.0-4.8) k/uL Monocytes # 0.7 (0-1.0) k/uL Eosinophils # 0.3 (0-0.7) k/uL Basophils # 0.1 (0-0.2) k/uL Sodium 137 (137-145) mmol/L Potassium 4.2 (3.5-5.1) mmol/L Chloride 106 (98-107) mmol/L Carbon Dioxide 24 (22-30) mmol/L Anion Gap 7 mmol/L BUN 11 (9-20) mg/dL Creatinine 0.68 (0.66-1.25) mg/dL Est GFR (CKD-EPI)AfAm >90 (>60 ml/min/1.73 sqM) Est GFR (CKD-EPI)NonAf >90 (>60 ml/min/1.73 sqM) Glucose 98 (74-99) mg/dL Calcium 9.0 (8.4-10.2) mg/dL Total Bilirubin 0.4 (0.2-1.3) mg/dL AST 25 (17-59) U/L ALT 48 (21-72) U/L Alkaline Phosphatase 81 (38-126) U/L Total Protein 6.3 (6.3-8.2) g/dL Albumin 3.8 (3.5-5.0) g/dL Amylase 82 (30-110) U/L Lipase 312 H (23-300) U/L Urine Color Yellow Urine Appearance Clear (Clear) Urine pH 6.5 (5.0-8.0) Ur Specific [place] 1.035 (1.001-1.035) Urine Protein Negative (Negative) Urine Glucose (UA) Negative (Negative) Urine Ketones Negative (Negative) Urine Blood Negative (Negative) Urine Nitrite Negative (Negative) Urine Bilirubin Negative (Negative) Urine Urobilinogen <2.0 (<2.0) mg/dL Ur Leukocyte Esterase Negative (Negative) Disposition Clinical Impression: Abdominal pain, Diverticulitis of intestine with abscess Disposition: ADMITTED IP TO THIS HOSP Condition: Serious Is patient prescribed a controlled substance at d/c from ED?: No Time of Disposition: 16:31 Decision to Admit Reason: Admit from EC Decision Date: 01/26/19 Decision Time: 16:31
[2019-01-26] MEDS ORDERED: MORPHINE SULFATE 4 MG/ML SYRINGE IVP STA (15:20)
[2019-01-26 15:51] LABS: Basophils # (A) 0.1 k/uL (0-0.2); Basophils % (A) 0 %; Eosinophils # (A) 0.3 k/uL (0-0.7); Eosinophils % (A) 2 %; HCT 41.8 % (39.0-53.0); HGB 14.1 gm/dL (13.0-17.5); Lymphocytes # (A) 2.6 k/uL (1.0-4.8); Lymphocytes % (A) 17 %; MCHC 33.8 g/dL (31.0-37.0); MCV 88.7 fL (80.0-100.0); Mean Platelet Volume 7.4; Monocytes # (A) 0.7 k/uL (0-1.0); Monocytes % (A) 5 %; Neutrophils # (A) 11.7 k/uL (1.3-7.7); Neutrophils % (A) 76 %; Platelet Count 286 k/uL (150-450); RBC 4.71 m/uL (4.30-5.90); RDW 13.9 % (11.5-15.5); WBC 15.5 k/uL (3.8-10.6)
[2019-01-26 16:00] LABS: ALT 48 U/L (21-72); AST 25 U/L (17-59); Albumin 3.8 g/dL (3.5-5.0); Alkaline Phosphatase 81 U/L (38-126); Amylase 82 U/L (30-110); Anion Gap 7 mmol/L; Blood Urea Nitrogen 11 mg/dL (9-20); Carbon Dioxide 24 mmol/L (22-30); Chloride 106 mmol/L (98-107); Glucose 98 mg/dL (74-99); Lipase 312 U/L (23-300); Potassium 4.2 mmol/L (3.5-5.1); Sodium 137 mmol/L (137-145); Total Bilirubin 0.4 mg/dL (0.2-1.3); Total Protein 6.3 g/dL (6.3-8.2)
--- NOTE | 2019-01-26 16:20 | CT ---
EXAMINATION TYPE: CT abdomen pelvis w con DATE OF EXAM: 01/26/2019 COMPARISON: 02/03/2017 HISTORY: LLQ pain CT DLP: 1841.1 mGycm Automated exposure control for dose reduction was used. TECHNIQUE: Helical acquisition of images was performed from the lung bases through the pelvis. CONTRAST: Performed without Oral Contrast and with IV Contrast, patient injected with 100 mL of Isovue 300. FINDINGS: LUNG BASES: There is very slight left hemidiaphragm elevation unchanged from the prior LIVER/GB: No significant abnormality is appreciated. PANCREAS: No significant abnormality is seen. SPLEEN: Calcified benign splenic granuloma is present. ADRENALS: No significant abnormality is seen. KIDNEYS: Kidneys enhance and excrete symmetrically without hydronephrosis. FREE AIR: No free air is visualized. ADENOPATHY: No greater than 1 cm short axis lymph nodes are seen in the abdomen or pelvis. OSSEOUS STRUCTURES: Nonspecific sclerotic punctate foci of the bilateral hips likely represent bone islands. BOWEL: Appendix is retrocecal, extending to the medial surface of the liver, air-filled and within n ormal limits of size. No dilated large or small bowel. There is sigmoid and descending colonic wall thickening with numerous diverticula and descending ingrid colonic fat stranding as well as fascial plane thickening of the lateral conal fascia and small amoun t of likely relating free fluid. Rectosigmoid anastomotic site is diminutive and incomplete stricture is not excluded. No proximal dilated bowel. Two very small 9 mm probable submucosal early abscesses are seen on image 50 of series 201. OTHER: Abdominal aorta is of normal course and caliber. IMPRESSION: 1. ACUTE DESCENDING COLONIC DIVERTICULITIS WITH DEVELOPMENT OF SMALL SUBCENTIMETER PROBABLE SUBMUCOSA L ABSCESSES. NO PNEUMOPERITONEUM AT THIS TIME. 2. REDEMONSTRATION OF CALIBER CHANGE AT THE RECTOSIGMOID ANASTOMOTIC SITE MAY RELATE TO INCOMPLETE ST RICTURE WITHOUT CURRENT OBSTRUCTION.
[2019-01-26] MEDS ORDERED: PIPERACILLIN-TAZOBACTAM 3.375 GM in SODIUM CHLORIDE 0.9% 100 ML IVPB STA (16:22)
[2019-01-26] MEDS ORDERED: ONDANSETRON 4 MG/2 ML VIAL IVP PRN (16:28)
[2019-01-26] MEDS ORDERED: NALOXONE 0.4 MG/ML 1 ML VIAL IV PRN (16:28)
[2019-01-26 16:41] LABS: Appearance,Urine Clear (Clear); Bilirubin,Urine Negative (Negative); Blood,Urine Negative (Negative); Color,Urine Yellow; Glucose,Urine (UA) Negative (Negative); Ketones,Urine Negative (Negative); Leukocyte Esterase,Urine Negative (Negative); Nitrite,Urine Negative (Negative); PH, Urine 6.5 (5.0-8.0); Protein,Urine Negative (Negative); Specific Gravity,Urine 1.035 (1.001-1.035); Urobilinogen,Urine <2.0 mg/dL (<2.0)
[2019-01-26] MEDS: SODIUM CHLORIDE 0.9% 1,000 ML IV SCH (17:03)
[2019-01-26] MEDS: HYDROmorphone 1 MG/ML 1 ML SYRINGE IVP PRN ×3 (17:04→23:40)
[2019-01-26 18:05] VITALS: BMI 34.2
[2019-01-27] MEDS: SODIUM CHLORIDE 0.9% 1,000 ML IV SCH ×3 (02:30→21:34)
[2019-01-27] MEDS: HYDROmorphone 1 MG/ML 1 ML SYRINGE IVP PRN ×4 (05:19→17:35)
[2019-01-27] MEDS: ENALAPRILAT 1.25 MG/ML 1 ML VIAL IVP PRN (08:10)
[2019-01-27 09:45] LABS: Basophils % (A) 0 %; Eosinophils # (A) 0.2 k/uL (0-0.7); Eosinophils % (A) 1 %; HCT 43.4 % (39.0-53.0); HGB 13.8 gm/dL (13.0-17.5); Lymphocytes # (A) 2.6 k/uL (1.0-4.8); Lymphocytes % (A) 18 %; MCH 28.5 pg (25.0-35.0); MCHC 31.9 g/dL (31.0-37.0); MCV 89.6 fL (80.0-100.0); Monocytes # (A) 0.6 k/uL (0-1.0); Monocytes % (A) 4 %; Neutrophils # (A) 10.5 k/uL (1.3-7.7); Neutrophils % (A) 75 %; Platelet Count 254 k/uL (150-450); RBC 4.84 m/uL (4.30-5.90); RDW 13.3 % (11.5-15.5); WBC 14.1 k/uL (3.8-10.6)
[2019-01-27 10:04] LABS: Anion Gap 6 mmol/L; Blood Urea Nitrogen 7 mg/dL (9-20); Calcium 8.7 mg/dL (8.4-10.2); Carbon Dioxide 27 mmol/L (22-30); Chloride 104 mmol/L (98-107); Glucose 114 mg/dL (74-99); Potassium 4.1 mmol/L (3.5-5.1); Sodium 137 mmol/L (137-145)
[2019-01-27] MEDS: AMPICILLIN-SULBACTAM 3 GM in SODIUM CHLORIDE 0.9% 100 ML IVPB SCH ×3 (13:31→23:55)
--- NOTE | 2019-01-27 14:17 | PN ---
PROGRESS NOTE DATE OF SERVICE: 01/27/2019 CHIEF COMPLAINT: Diverticulitis. HISTORY OF PRESENT ILLNESS: This gentleman is still having some discomfort, but is starting to feel a little bit better. PHYSICAL EXAM: His chest is clear and cardiac exam is normal and he may be slightly less tender in the lower abdomen. Extremities are normal. IMPRESSION: Diverticulitis. PLAN: Continue with current conservative management. He is passing gas and he is not nauseated. MMODL / IJN: [id number] /
--- NOTE | 2019-01-27 14:23 | CONS ---
CONSULTATION CHIEF COMPLAINT: Left lower quadrant pain. HISTORY OF PRESENT ILLNESS: This gentleman came to emergency room after a fairly rapid onset of left lower quadrant abdominal pain. He has had a history of diverticulitis which actually required a bowel resection in 2016. He is currently on IV antibiotics and feels as though things are improving slowly. REVIEW OF SYSTEMS: He has had no headaches, neurologic problems, chest pain, shortness of breath, hypertension, heart disease, nausea, vomiting, melena, hematochezia, jaundice, liver disease, renal failure, diabetes, cancer. Past medical history, family history, personal, and social histories are otherwise unremarkable and noncontributory. He is not currently on any medication and he is not allergic to any. He does smoke. He uses alcohol occasionally. PHYSICAL EXAMINATION: Blood pressure is 148/110 with pulse 96, respirations of 18 and temperature 97.8. In general he appeared to be well developed, well nourished, and uncomfortable, but in no acute distress. Skin color is normal, skin is warm, dry. Lymph nodes are not enlarged. Head, ears, eyes, nose, mouth, and throat were normal. Neck veins are not distended. Thyroid is not enlarged. Chest is clear. Cardiac exam is in normal. Sinus rhythm and no murmurs or extra sounds. The bowel sounds are heard. He is tender in the left lower quadrant. Extremities: Elicia. Neurologically, he is intact. IMPRESSION: 1. Acute diverticulitis. 2. History of diverticulitis, status post bowel resection. RECOMMENDATIONS: No change in current program with conservative management of IV fluids and antibiotics. MMODL / IJN: [id number] /
--- NOTE | 2019-01-27 15:18 | P.GSHP ---
History of Present Illness H&P Date: 01/27/19 Chief Complaint: Abdominal pain CHIEF COMPLAINT: Abdominal pain HISTORY OF PRESENT ILLNESS: 43-year-old male who presented to emergency room with a one-day duration off left lower quadrant abdominal pain. Patient reports the pain came suddenly yesterday. He reports loose stools. Denies nausea vomiting. Denies hematemesis, hematochezia, or melena. PAST MEDICAL HISTORY: See list. PAST SURGICAL HISTORY: See list. SOCIAL HISTORY: No illicit drug use. REVIEW OF SYSTEMS: CONSTITUTIONAL: Denies fever or chills. HEENT: Denies blurred vision, vision changes, or eye pain. Denies hemoptysis CARDIOVASCULAR: Denies chest pain or pressure. RESPIRATORY: No shortness of breath. GASTROINTESTINAL: Refer to HPI for pertinent findings HEMATOLOGIC: Denies bleeding disorders. GENITOURINARY: Denies any blood in urine. SKIN: Denies pruitis. Denies rash. PHYSICAL EXAM: VITAL SIGNS: Reviewed. GENERAL: Well-developed in no acute distress. HEENT: No sclera icterus. Extraocular movements grossly intact. Moist buccal mucosa. Head is atraumatic, normocephalic. ABDOMEN: Soft. Nondistended. Positive bowel sounds. Tenderness noted on palpation of left lower quadrant. NEUROLOGIC: Alert and oriented. Cranial nerves II through XII grossly intact. IMAGING: CT abdomen and pelvis: Acute descending colonic diverticulitis with development of small subcentimeter probable submucosal abscesses measuring 9 mm ASSESSMENT: 1. Abdominal pain 1 day 2. Acute diverticulitis with small abscess formation 3. History of low anterior resection in July 2016 PLAN: 1. Continue clear liquid diet 2. Pain control 3. Continue IV fluids 4. Continue antibiotics 5. Consult infectious disease for further evaluation Nurse practitioner note has been reviewed by physician. Signing provider agrees with the documented findings, assessment, and plan of care. Past Medical History Past Medical History: GI Bleed, Osteoarthritis (OA) Additional Past Medical History / Comment(s): HX OF Diverticulitis, colitis, ARTHIRITIS IN NECK, lower GI bleeds. History of Any Multi-Drug Resistant Organisms: MRSA Date of last positivie culture/infection: neck MDRO Source:: 2012 Past Surgical History: Bowel Resection Additional Past Surgical History / Comment(s): NASAL SURGERY. L ANKLE SURGERY 1998. COLONOSCOPies with last one 07/22/16, 08-08-16 LOW ANT BOWEL RESECTION Additional Past Anesthesia/Blood Transfusion Reaction / Comment(s): PT HAS NO ADVERSE REACTION TO ANESTHESIA EXCEPT A"FIGHTER" WHEN I WAKE UP. NEVER RECEIVED BLOOD PRODUCTS. Past Psychological History: Anxiety Smoking Status: Current every day smoker Past Alcohol Use History: None Reported Past Drug Use History: None Reported - Past Family History Father Family Medical History: No Reported History Additional Family Medical History / Comment(s): Father is healthy. Mother Family Medical History: Diabetes Mellitus Additional Family Medical History / Comment(s): Mother is a borderline diabetic. Medications and Allergies Home Medications Medication Instructions Recorded Confirmed Type Ibuprofen [Motrin Ib] 200 mg PO Q4H PRN 12/04/18 01/26/19 History Allergies Allergy/AdvReac Type Severity Reaction Status Date / Time No Known Allergies Allergy Verified 01/26/19 15:52 Surgical - Exam Vital Signs Temp Pulse Resp BP Pulse Ox 98.0 F 97 22 151/89 98 01/26/19 15:08 01/26/19 15:08 01/26/19 15:08 01/26/19 15:08 01/26/19 15:08 Results - Labs 01/27/19 08:57 01/27/19 08:57 Abnormal Lab Results - Last 24 Hours (Table) 01/26/19 01/26/19 01/27/19 Range/Units 15:35 15:35 08:57 WBC 15.5 H 14.1 H (3.8-10.6) k/uL Neutrophils # 11.7 H 10.5 H (1.3-7.7) k/uL BUN (9-20) mg/dL Glucose (74-99) mg/dL Lipase 312 H (23-300) U/L 01/27/19 Range/Units 08:57 WBC (3.8-10.6) k/uL Neutrophils # (1.3-7.7) k/uL BUN 7 L (9-20) mg/dL Glucose 114 H (74-99) mg/dL Lipase (23-300) U/L Diabetes panel 01/26/19 01/27/19 Range/Units 15:35 08:57 Sodium 137 137 (137-145) mmol/L Potassium 4.2 4.1 (3.5-5.1) mmol/L Chloride 106 104 (98-107) mmol/L Carbon Dioxide 24 27 (22-30) mmol/L BUN 11 7 L (9-20) mg/dL Creatinine 0.68 0.78 (0.66-1.25) mg/dL Glucose 98 114 H (74-99) mg/dL Calcium 9.0 8.7 (8.4-10.2) mg/dL AST 25 (17-59) U/L ALT 48 (21-72) U/L Alkaline Phosphatase 81 (38-126) U/L Total Protein 6.3 (6.3-8.2) g/dL Albumin 3.8 (3.5-5.0) g/dL Calcium panel 01/26/19 01/27/19 Range/Units 15:35 08:57 Calcium 9.0 8.7 (8.4-10.2) mg/dL Albumin 3.8 (3.5-5.0) g/dL Pituitary panel 01/26/19 01/27/19 Range/Units 15:35 08:57 Sodium 137 137 (137-145) mmol/L Potassium 4.2 4.1 (3.5-5.1) mmol/L Chloride 106 104 (98-107) mmol/L Carbon Dioxide 24 27 (22-30) mmol/L BUN 11 7 L (9-20) mg/dL Creatinine 0.68 0.78 (0.66-1.25) mg/dL Glucose 98 114 H (74-99) mg/dL Calcium 9.0 8.7 (8.4-10.2) mg/dL Adrenal panel 01/26/19 01/27/19 Range/Units 15:35 08:57 Sodium 137 137 (137-145) mmol/L Potassium 4.2 4.1 (3.5-5.1) mmol/L Chloride 106 104 (98-107) mmol/L Carbon Dioxide 24 27 (22-30) mmol/L BUN 11 7 L (9-20) mg/dL Creatinine 0.68 0.78 (0.66-1.25) mg/dL Glucose 98 114 H (74-99) mg/dL Calcium 9.0 8.7 (8.4-10.2) mg/dL Total Bilirubin 0.4 (0.2-1.3) mg/dL AST 25 (17-59) U/L ALT 48 (21-72) U/L Alkaline Phosphatase 81 (38-126) U/L Total Protein 6.3 (6.3-8.2) g/dL Albumin 3.8 (3.5-5.0) g/dL
--- NOTE | 2019-01-27 17:03 | CONS ---
CONSULTATION DATE OF SERVICE: 01/27/2019 REASON FOR CONSULTATION: Acute diverticulitis with small abscess; antibiotic recommendations. HISTORY OF PRESENT ILLNESS: The patient is a 43-year-old male with a past medical history significant for recurrent diverticulitis; last episode was about 2 years ago. The patient presented to the ER at [facility] yesterday with the chief complaint of abdominal pain, left lower quadrant, that apparently started 2 days before he presented to hospital. The patient did progressively get worse and more severe yesterday, to the point of 07/29, with no significant radiation. Pain has been mostly sharp in nature. The patient felt nauseated but episodes of any vomiting. He did have some small bowel movement but no diarrhea or any constipation. With these symptoms, the patient was evaluated by the ER physician. On arrival in the ER, the patient did not have any high- grade fever. White count was elevated at 15.5. The patient did have a CT scan of the abdomen and pelvis completed which shows acute descending colon diverticulitis with development of small sub-centimeter probable submucosal abscesses. No pneumoperitoneum. At this time the patient received a dose of Zosyn and was admitted to the hospital. Infectious Disease was consulted this morning for further recommendations regarding antibiotic therapy. REVIEW OF SYSTEMS: Positive points have been mentioned in the HPI. Rest of the systems are negative. PAST MEDICAL HISTORY: 1. GI bleed. 2. Osteoarthritis. 3. Diverticulitis. 4. History of MRSA infection. PAST SURGICAL HISTORY: 1. Bowel resection. 2. Nasal surgery. 3. Left . 4. Colonoscopy. 5. Low anterior bowel resection. SOCIAL HISTORY: Current everyday smoker. Denies drinking or drug use. FAMILY HISTORY: Father is healthy. Mother is borderline diabetic. ALLERGIES: NO KNOWN DRUG ALLERGIES. MEDICATIONS: The patient received a dose of Zosyn in the ER yesterday. Currently he is on Zofran, Narcan, Dilaudid and Vasotec. PHYSICAL EXAMINATION: Blood pressure 136/85 with a pulse of 83, temperature 98.1. He is 94% on room air. General description is a middle-aged male lying in bed in no distress. HEENT examination shows no pallor or scleral icterus. Oral mucosa membrane is dry. No pharyngeal erythema or thrush. NECK: Trachea is central. No thyromegaly. LUNGS: Unlabored breathing. Clear to auscultation anteriorly. No wheeze or crackle. HEART: S1, S2. Regular rate and rhythm. ABDOMEN: Soft. Very minimal tenderness in left lower quadrant area. No guarding or rigidity. EXTREMITIES: No edema of the feet. SKIN EXAMINATION: No rash or mass palpable. Neurologically the patient is awake, alert, oriented x3. Mood and affect normal. LABS: Hemoglobin is 13.8, white count 14.1. Admission white count was 15.5. BUN of 7, creatinine 0.78. UA has been negative. CT report as mentioned above. DIAGNOSTIC IMPRESSION AND PLAN: Patient admitted to hospital with acute left lower abdominal pain along with nausea, chills, elevated white count. Source is acute complicated descending colon diverticulitis with small submucosal abscess but no evidence of any pneumoperitoneum. The likely organism needing to be covered will be enteric gram negative, both aerobes and anaerobes in this patient who apparently has not been on antibiotic in the recent past; could be sensitive pathogen such as an E coli. PLAN: 1. We will start the patient on Unasyn 3 grams IV piggyback q.6 hours. 2. Bowel rest. 3. IV fluid. 4. Will follow up on clinical condition to further adjust his medication if needed. Thank you for this consultation. Will follow this patient along with you. MMODL / IJN: [id number] /
[2019-01-28] MEDS: HYDROmorphone 1 MG/ML 1 ML SYRINGE IVP PRN ×5 (00:29→20:18)
[2019-01-28] MEDS: AMPICILLIN-SULBACTAM 3 GM in SODIUM CHLORIDE 0.9% 100 ML IVPB SCH ×4 (05:24→23:46)
[2019-01-28 08:51] LABS: Basophils # (A) 0.1 k/uL (0-0.2); Basophils % (A) 1 %; Eosinophils # (A) 0.2 k/uL (0-0.7); Eosinophils % (A) 2 %; HCT 43.3 % (39.0-53.0); HGB 14.1 gm/dL (13.0-17.5); Lymphocytes # (A) 2.5 k/uL (1.0-4.8); Lymphocytes % (A) 27 %; MCH 29.1 pg (25.0-35.0); MCHC 32.5 g/dL (31.0-37.0); MCV 89.5 fL (80.0-100.0); Mean Platelet Volume 7.7; Monocytes # (A) 0.6 k/uL (0-1.0); Monocytes % (A) 6 %; Neutrophils # (A) 5.9 k/uL (1.3-7.7); Neutrophils % (A) 63 %; Platelet Count 282 k/uL (150-450); RBC 4.83 m/uL (4.30-5.90); RDW 13.6 % (11.5-15.5); WBC 9.4 k/uL (3.8-10.6)
[2019-01-28] MEDS: SODIUM CHLORIDE 0.9% 1,000 ML IV SCH ×2 (09:38→18:59)
[2019-01-28 10:44] LABS: Anion Gap 7 mmol/L; Blood Urea Nitrogen 7 mg/dL (9-20); Calcium 8.7 mg/dL (8.4-10.2); Carbon Dioxide 26 mmol/L (22-30); Chloride 106 mmol/L (98-107); Glucose 94 mg/dL (74-99); Sodium 139 mmol/L (137-145)
--- NOTE | 2019-01-28 14:08 | P.PN ---
Subjective Progress Note Date: 01/28/19 CHIEF COMPLAINT: Abdominal pain HISTORY OF PRESENT ILLNESS: patient seen and examined at the bedside. Patient continues to report left lower quadrant pain although it is improved since yesterday. He is tolerating clear liquid diet. The patient is adamant about having his diet advanced or he states he will have somebody bring in food for him. White count today is 9.4, down from 14.1. He is afebrile. PHYSICAL EXAM: VITAL SIGNS: Reviewed. GENERAL: Well-developed in no acute distress. HEENT: No sclera icterus. Extraocular movements grossly intact. Moist buccal mucosa. Head is atraumatic, normocephalic. ABDOMEN: Soft. Nondistended. Positive bowel sounds. Tenderness noted on palpation of left lower quadrant. NEUROLOGIC: Alert and oriented. Cranial nerves II through XII grossly intact. IMAGING: CT abdomen and pelvis: Acute descending colonic diverticulitis with development of small subcentimeter probable submucosal abscesses measuring 9 mm ASSESSMENT: 1. Abdominal pain 1 day 2. Acute diverticulitis with small abscess formation 3. History of low anterior resection in July 2016 PLAN: 1. Advance diet to full liquids 2. Pain control 3. Continue IV fluids 4. Continue antibiotics 5. Antibiotics per ID Nurse practitioner note has been reviewed by physician. Signing provider agrees with the documented findings, assessment, and plan of care. Objective - Vital Signs Vital signs: Vital Signs Temp 97.5 F L 01/28/19 07:00 Pulse 77 01/28/19 07:00 Resp 18 01/28/19 07:00 BP 158/103 01/28/19 07:00 Pulse Ox 100 01/28/19 07:00 Intake & Output 01/27/19 01/28/19 01/28/19 18:59 06:59 18:59 Intake Total 790 1780 640 Balance 790 1780 640 Intake: Intake, IV Titration 1000 Amount Sodium Chloride 0.9% 1, 1000 000 ml @ 100 mls/hr IV . Q10H PRATEEK Rx#:[id number] Oral 790 780 640 Other: # Voids 4 2 1 - Labs CBC & Chem 7: 01/28/19 08:09 01/28/19 08:09 Labs: Abnormal Lab Results - Last 24 Hours (Table) 01/28/19 Range/Units 08:09 BUN 7 L (9-20) mg/dL Microbiology - Last 24 Hours (Table) 01/26/19 17:03 Blood Culture - Preliminary Blood No Growth after 24 hours
--- NOTE | 2019-01-28 20:13 | PN ---
PROGRESS NOTE DATE OF SERVICE: 01/28/2019. REASON FOR FOLLOWUP: Acute sigmoid diverticulitis. INTERVAL HISTORY: The patient is currently afebrile. The patient is breathing comfortably. The patient's abdominal pain has slightly decreased. No nausea. No vomiting. No diarrhea. PHYSICAL EXAMINATION: Blood pressure 130/80 with a pulse of 85, temperature 98.1. He is 98% on room air. General description is a middle-aged male lying in bed in no distress. Respiratory system: Unlabored breathing. Clear to auscultation anteriorly. Heart S1, S2. Regular rate and rhythm. Abdomen soft. No tenderness. No guarding. No rigidity. Extremities are no edema of the feet. LABS: Hemoglobin is 14.1, white count 9.4 with a BUN of 7, creatinine 0.79. DIAGNOSTIC IMPRESSION AND PLAN: Patient with acute sigmoid diverticulitis with some mucosal abscess. No evidence of any perforation. Patient is currently on Unasyn. His white count has normalized. If the patient continues to improve, plan to finish therapy with oral Augmentin and close outpatient followup. MMODL / IJN: [id number] /
[2019-01-28] MEDS: ENALAPRILAT 1.25 MG/ML 1 ML VIAL IVP PRN (20:18)
[2019-01-29] MEDS: HYDROmorphone 1 MG/ML 1 ML SYRINGE IVP PRN ×2 (00:35→05:06)
[2019-01-29] MEDS: SODIUM CHLORIDE 0.9% 1,000 ML IV SCH (03:13)
[2019-01-29] MEDS: AMPICILLIN-SULBACTAM 3 GM in SODIUM CHLORIDE 0.9% 100 ML IVPB SCH (05:06)
[2019-01-29] MEDS: ENALAPRILAT 1.25 MG/ML 1 ML VIAL IVP PRN (05:12)
[2019-01-29 07:27] VITALS: BP 114/80; PULSE 70; RESP 17; TEMP 97.7
[2019-01-29 08:09] LABS: Anion Gap 8 mmol/L; Basophils % (A) 1 %; Blood Urea Nitrogen 11 mg/dL (9-20); Calcium 9.2 mg/dL (8.4-10.2); Carbon Dioxide 26 mmol/L (22-30); Chloride 106 mmol/L (98-107); Eosinophils # (A) 0.2 k/uL (0-0.7); Eosinophils % (A) 2 %; Glucose 88 mg/dL (74-99); HGB 14.7 gm/dL (13.0-17.5); Lymphocytes % (A) 21 %; MCH 29.1 pg (25.0-35.0); Mean Platelet Volume 7.3; Monocytes # (A) 0.6 k/uL (0-1.0); Monocytes % (A) 6 %; Neutrophils # (A) 6.5 k/uL (1.3-7.7); Neutrophils % (A) 69 %; Platelet Count 309 k/uL (150-450); Potassium 4.6 mmol/L (3.5-5.1); RBC 5.06 m/uL (4.30-5.90); RDW 13.1 % (11.5-15.5); Sodium 140 mmol/L (137-145); WBC 9.4 k/uL (3.8-10.6)
[2019-01-29] MEDS ORDERED: HYDROcodone/APAP 5-325MG 1 EACH TAB PO PRN (08:57)
[2019-01-29] MEDS ORDERED: ACETAMINOPHEN TAB 325 MG TAB PO PRN (09:00)
--- NOTE | 2019-01-29 15:14 | P.DS ---
Providers Date of admission: 01/26/19 17:17 Expected date of discharge: 01/29/19 Attending physician: Fahad Zamora Consults: 01/26/19 19:35 Consult Physician Routine Consulting Provider: Lukas Marcial Consult Reason/Comments: Diverticulitis Do you want consulting provider notified?: Yes, Notify in am 01/27/19 09:12 Consult Physician Routine Consulting Provider: Ankur Philippe Consult Reason/Comments: Diverticulitis with small abscess Do you want consulting provider notified?: Yes Primary care physician: Lukas Marcial Hospital Course: 43-year-old male presents to emergency room with a chief complaint of abdominal pain. Patient was found to have diverticulitis. infectious disease was consulted and followed patient during hospitalization. Patient received IV antibiotics with improvement in his pain. Patient was discharged home today in stable condition on Augmentin per ID recommendations. please see EMR for further hospital course details DISCHARGE DIAGNOSIS: 1. Acute diverticulitis Nurse practitioner note has been reviewed by physician. Signing provider agrees with the documented findings, assessment, and plan of care. Patient Condition at Discharge: Stable Plan - Discharge Summary Discharge Rx Participant: No New Discharge Prescriptions: New Amoxicillin/Potassium Clav [Augmentin 875-125 Tablet] 1 tab PO Q12HR #22 tab No Action Ibuprofen [Motrin Ib] 200 mg PO Q4H PRN PRN Reason: Pain Discharge Medication List Ibuprofen [Motrin Ib] 200 mg PO Q4H PRN 12/04/18 [History] Amoxicillin/Potassium Clav [Augmentin 875-125 Tablet] 1 tab PO Q12HR #22 tab 01/28/19 [Rx] Follow up Appointment(s)/Referral(s): Lukas Marcial MD [Primary Care Provider] - 02/01/19 8:30 am Ankur Philippe MD [STAFF PHYSICIAN] - 02/08/19 10:30 am Fahad Zamora MD [STAFF PHYSICIAN] - 02/05/19 2:30 pm Patient Instructions/Handouts: Diverticulitis (DC), Diverticulitis Diet (DC) Activity/Diet/Wound Care/Special Instructions: bland diet Discharge Disposition: HOME SELF-CARE
--- NOTE | 2019-01-29 21:53 | PN ---
PROGRESS NOTE DATE OF SERVICE: 01/28/2019 CHIEF COMPLAINT: Diverticulitis. HISTORY OF PRESENT ILLNESS: This gentleman is doing fairly well but is still having a significant amount of pain in the left lower quadrant. It is not worse. He does not have an appetite. PHYSICAL EXAMINATION: Chest is clear. Cardiac exam is in normal sinus rhythm. He is fractionating still operator in the left lower quadrant. IMPRESSION: Diverticulitis. PLAN: Continue to follow with surgery. Continue with IV fluids and antibiotics. MMODL / IJN: [id number] /
--- NOTE | 2019-01-29 22:11 | PN ---
PROGRESS NOTE CHIEF COMPLAINT: Diverticulitis. HISTORY OF PRESENT ILLNESS: This gentleman is not making much progress. His pain is about the same. PHYSICAL EXAM: He is very tender. This is in the left lower quadrant. His blood pressure is also rising. IMPRESSION: 1. Diverticulitis. 2. Hypertension. PLAN: 1. Await further recommendations from surgery. 2. Treat hypertension. MMODL / IJN: [id number] /
== END 2019-01-29 10:24 | disposition home or self-care (01) | DRG 392 ==
LOC: EC 15:07 → 4SSUR 17:17
PROVIDERS: ADMIT Surgery; ATTEND Surgery
DX: K57.20 Diverticulitis of large intestine with perforation and abscess without bleeding (principal); I10 Essential (primary) hypertension; F41.9 Anxiety disorder, unspecified; M19.90 Unspecified osteoarthritis, unspecified site; Z86.14 Personal history of Methicillin resistant Staphylococcus aureus infection; Z90.49 Acquired absence of other specified parts of digestive tract; Z98.890 Other specified postprocedural states; Z83.3 Family history of diabetes mellitus; F17.210 Nicotine dependence, cigarettes, uncomplicated
CPT/HCPCS: 36415; 74177; 80048; 80053; 81003; 82150; 83690; 85025; 87040; 96365; 96375; 99285

== ENCOUNTER → 2019-04-15 | Outpatient (CLI) | payer OTHER ==
--- NOTE | 2019-04-15 13:32 | US ---
EXAMINATION TYPE: US venous doppler duplex LE DATE OF EXAM: 04/15/2019 1:12 PM COMPARISON: NONE CLINICAL HISTORY: M79.606 Bilat Leg pain R60.0 Edema. SIDE PERFORMED: bilateral TECHNIQUE: The lower extremity deep venous system is examined utilizing real time linear array sonog oren with graded compression, doppler sonography and color-flow sonography. VESSELS IMAGED: External Iliac Vein (EIV) Common Femoral Vein Deep Femoral Vein Greater Saphenous Vein * Femoral Vein Popliteal Vein Small Saphenous Vein * Proximal Calf Veins (* superficial vessels) Right Leg: Negative for DVT Left Leg: Negative for DVT IMPRESSION: No sonographic evidence of deep venous thrombosis within either lower extremity.
== END | disposition home or self-care (01) ==
LOC: RADUSWWP 12:41
PROVIDERS: ATTEND Family Medicine
DX: R60.0 Localized edema (principal)
CPT/HCPCS: 93970

== ENCOUNTER 2020-04-20 15:20 | Emergency (ER) | payer OTHER ==
[2020-04-20 15:25] VITALS: BP 177/82; PULSE 75; RESP 16; TEMP 98.2
[2020-04-20] MEDS ORDERED: ACETAMINOPHEN TAB 325 MG TAB PO STA (16:04)
--- NOTE | 2020-04-20 16:35 | XR ---
EXAMINATION TYPE: XR shoulder complete LT DATE OF EXAM: 04/20/2020 COMPARISON: NONE HISTORY: 44-year-old male with pain and limited range of motion TECHNIQUE: 3 views FINDINGS: AC joint appears congruent and intact. Subacromial space is preserved. No tendinous or bursal calcifi cations. Bulky inferior humeral head spur. Also, some bony irregularity along the subchondral bone of the glenoid articular surface. No acute fracture, subluxation, dislocation seen. IMPRESSION: Underlying glenohumeral joint OA. No acute osseous abnormality seen.
[2020-04-20] MEDS ORDERED: ACET/COD 300 MG/30 MG STARTER PACK 6 TAB BTL PO STA (17:01)
--- NOTE | 2020-04-20 17:01 | ED ---
General Adult HPI - General Chief complaint: Extremity Injury, Upper Stated complaint: lt should injury Time Seen by Provider: 04/20/20 15:25 Source: patient, RN notes reviewed, old records reviewed Mode of arrival: ambulatory Limitations: no limitations - History of Present Illness Initial comments: 44-year-old male patient with a chief complaint of left shoulder pain. 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 He does mostly upper body movements.. Patient reports that he has been moving from a three-story house [place] a ranch. He has been carrying a lot of heavy objects. He reports that his left shoulder has been very sore. Reports that is sore more in the posterior aspect. Worse with range of motion. Has been bothering him for the last week. Denies any anterior chest pain. Denies any shortness of breath. Systemic: Pt denies fatigue, fever/chills, rash. Pt denies weakness, night sweats, weight loss. Neuro: Pt denies headache, visual disturbances, syncope or pre-syncope. HEENT: Pt denies ocular discharge or irritation, otalgia, rhinorrhea, pharyngitis or notable lymphadenopathy. Cardiopulmonary: Pt denies chest pain, SOB, heart palpitations, dyspnea on exertion. Abdominal/GI: Pt denies abdominal pain, n/v/d. : Pt denies dysuria, burning w/ urination, frequency/urgency. Denies new onset urinary or bowel incontinence. MSK: Pt denies loss of strength or function in extremities. Neuro: Pt denies new onset weakness, paresthesias. - Related Data Home Medications Medication Instructions Recorded Confirmed Ibuprofen [Motrin Ib] 200 mg PO Q4H PRN 12/04/18 01/26/19 Previous Rx's Medication Instructions Recorded Amoxicillin/Potassium Clav 1 tab PO Q12HR #22 tab 01/28/19 [Augmentin 875-125 Tablet] Allergies Allergy/AdvReac Type Severity Reaction Status Date / Time No Known Allergies Allergy Verified 04/20/20 15:24 Review of Systems ROS Statement: Those systems with pertinent positive or pertinent negative responses have been documented in the HPI. ROS Other: All systems not noted in ROS Statement are negative. Past Medical History Past Medical History: GI Bleed, Osteoarthritis (OA) Additional Past Medical History / Comment(s): HX OF Diverticulitis, colitis, ARTHIRITIS IN NECK, lower GI bleeds. History of Any Multi-Drug Resistant Organisms: MRSA Date of last positivie culture/infection: neck MDRO Source:: 2012 Past Surgical History: Bowel Resection Additional Past Surgical History / Comment(s): NASAL SURGERY. L ANKLE SURGERY 1998. COLONOSCOPies with last one 07/22/16, 08-08-16 LOW ANT BOWEL RESECTION Additional Past Anesthesia/Blood Transfusion Reaction / Comment(s): PT HAS NO ADVERSE REACTION TO ANESTHESIA EXCEPT A"FIGHTER" WHEN I WAKE UP. NEVER RECEIVED BLOOD PRODUCTS. Past Psychological History: Anxiety Smoking Status: Current every day smoker Past Alcohol Use History: None Reported Past Drug Use History: None Reported - Past Family History Father Family Medical History: No Reported History Additional Family Medical History / Comment(s): Father is healthy. Mother Family Medical History: Diabetes Mellitus Additional Family Medical History / Comment(s): Mother is a borderline diabetic. General Exam - General Exam Comments Initial Comments: Constitutional: NAD, AOX3, Pt has pleasant affect. HEENT: NC/AT, trachea midline, neck supple, no lymphadenopathy. Posterior pharynx non erythematous, without exudates. External ears appear normal, without discharge. Mucous membranes moist. Eyes PERRLA, EOM intact. There is no scleral icterus. No pallor noted. Cardiopulmonary: RRR, no murmurs, rubs or gallops, no JVD noted. Lungs CTAB in anterior and posterior herndon. No peripheral edema. Abdominal exam: Abdomen soft and non-distended. Abdomen non-tender to palpation in all 4 quadrants. Bowel sounds active in LLQ. No hepatosplenomegaly. No ecchymosis Neuro: CN II-XII grossly intact. No nuchal rigidity. No raccon eyes, no gusman sign, no hemotympanum. No cervical spinal tenderness. MSK: Left posterior shoulder tender to palpation. No skin changes. Range of motion limited secondary to pain. Empty can test is positive. Strength and sensation is intact. Distal pulses are intact and equal. Limitations: no limitations Course Vital Signs 04/20/20 15:21 Temperature 98.2 F Pulse Rate 75 Respiratory 16 Rate Blood Pressure 177/82 O2 Sat by Pulse 98 Oximetry Medical Decision Making - Medical Decision Making 44-year-old male patient with a chief complaint of left shoulder pain has been ongoing for the last week. Pain is reviewed full with palpation and range of motion. Plain film does display glenohumeral arthritis. Patient presentation is consistent with shoulder sprain, possible rotator cuff injury. Patient will discharge the patient with. Follow-up and return to ER if condition worsens. Case discussed with Dr. Lui. Disposition Clinical Impression: Shoulder sprain Disposition: HOME SELF-CARE Condition: Stable Instructions (If sedation given, give patient instructions): Shoulder Sprain (ED) Additional Instructions: Follow up with orthopedic consult tomorrow. Use Tylenol or Motrin as needed for pain. Return to ER if condition worsens. Is patient prescribed a controlled substance at d/c from ED?: No Referrals: Lukas Marcial MD [Primary Care Provider] - 1-2 days Vic Riojas DO [Medical Doctor] - 1-2 days Leon Marshall MD [STAFF PHYSICIAN] - 1-2 days
== END 2020-04-20 17:22 | disposition home or self-care (01) ==
LOC: EC 15:20
DX: S43.492A Other sprain of left shoulder joint, initial encounter (principal); M19.012 Primary osteoarthritis, left shoulder; F17.200 Nicotine dependence, unspecified, uncomplicated; Z86.14 Personal history of Methicillin resistant Staphylococcus aureus infection; X50.0XXA Overexertion from strenuous movement or load, initial encounter; Y93.89 Activity, other specified
CPT/HCPCS: 99284

== ENCOUNTER 2020-08-31 23:04 | Emergency (ER) | payer OTHER ==
[2020-08-31 23:15] VITALS: TEMP 98.5
[2020-08-31] MEDS ORDERED: KETOROLAC 15 MG/ML 1 ML VIAL IVP STA (23:44)
--- NOTE | 2020-08-31 23:57 | ED ---
Lower Extremity Injury HPI - General Chief Complaint: Extremity Injury, Lower Stated Complaint: left ankle pain Time Seen by Provider: 08/31/20 23:36 Source: patient Mode of arrival: wheelchair Limitations: no limitations - History of Present Illness Initial Comments: Patient is a 44-year-old male presenting to emergency Department with complaints of a painful left ankle that started today. Patient denies any recent falls or trauma to his left ankle. He states he had an ankle surgery about 20 years ago and does have a plate and screws present. Patient states he is extremely tender to the touch over the scar where his surgery was. He denies history of gout, he denies fever, chills. Denies any nausea or vomiting. He did not take anything for pain today. He has no further complaints at this time. Upon arrival to the ER, his vital signs are stable. - Related Data Home Medications Medication Instructions Recorded Confirmed Ibuprofen [Motrin Ib] 200 mg PO Q4H PRN 12/04/18 01/26/19 Previous Rx's Medication Instructions Recorded Amoxicillin/Potassium Clav 1 tab PO Q12HR #22 tab 01/28/19 [Augmentin 875-125 Tablet] Allergies Allergy/AdvReac Type Severity Reaction Status Date / Time No Known Allergies Allergy Verified 08/31/20 23:12 Review of Systems ROS Statement: Those systems with pertinent positive or pertinent negative responses have been documented in the HPI. ROS Other: All systems not noted in ROS Statement are negative. Past Medical History Past Medical History: GI Bleed, Osteoarthritis (OA) Additional Past Medical History / Comment(s): HX OF Diverticulitis, colitis, ARTHIRITIS IN NECK, lower GI bleeds. History of Any Multi-Drug Resistant Organisms: MRSA Date of last positivie culture/infection: neck MDRO Source:: 2012 Past Surgical History: Bowel Resection Additional Past Surgical History / Comment(s): NASAL SURGERY. L ANKLE SURGERY 1998. COLONOSCOPies with last one 07/22/16, 08-08-16 LOW ANT BOWEL RESECTION Additional Past Anesthesia/Blood Transfusion Reaction / Comment(s): PT HAS NO ADVERSE REACTION TO ANESTHESIA EXCEPT A"FIGHTER" WHEN I WAKE UP. NEVER RECEIVED BLOOD PRODUCTS. Past Psychological History: Anxiety Smoking Status: Current every day smoker Past Alcohol Use History: None Reported Past Drug Use History: None Reported - Past Family History Father Family Medical History: No Reported History Additional Family Medical History / Comment(s): Father is healthy. Mother Family Medical History: Diabetes Mellitus Additional Family Medical History / Comment(s): Mother is a borderline diabetic. General Exam - General Exam Comments Initial Comments: GENERAL: Patient is well-developed and well-nourished. Patient is nontoxic and in no acute distress. HEAD: Atraumatic, normocephalic. EYES: Pupils equal round and reactive to light, extraocular movements intact, sclera anicteric, conjunctiva are normal. Eyelids were unremarkable. ENT: TMs normal, nares patent, oropharynx clear without exudates. Moist mucous membranes. NECK: Normal range of motion, supple without lymphadenopathy or JVD. LUNGS: Unlabored respirations. Breath sounds clear to auscultation bilaterally and equal. No wheezes rales or rhonchi. HEART: Regular rate and rhythm without murmurs, rubs or gallops. ABDOMEN: Soft, nontender, normoactive bowel sounds. No guarding, no rebound. No masses appreciated. : Deferred MUSCULOSKELETAL: Patient is very tender to touch over the left medial malleolus over his scar from previous ankle surgery. He has decreased range of motion secondary to pain. He is neurovascular intact. No clubbing or cyanosis. NEUROLOGICAL: Patient is alert and oriented x 3. Motor and sensory are also intact. Symmetrical smile. Normal speech PSYCH: Normal mood, normal affect. SKIN: Warm, Dry, normal turgor, no rashes or lesions noted. Limitations: no limitations Course Vital Signs 08/31/20 23:13 Temperature 98.5 F Pulse Rate 110 H Respiratory 20 Rate Blood Pressure 169/98 O2 Sat by Pulse 95 Oximetry Medical Decision Making - Medical Decision Making Patient is a 44-year-old male here for left ankle pain that just started suddenly today. He cannot think of any other injuries or trauma he didn't ankle. He does have history of previous ankle surgery with hardware 20 years ago. His vital signs are stable he is afebrile. The area does not look red or swollen. He does have extreme tenderness in the medial side of the left ankle over his scar. X-rays revealed no acute fractures dislocations or any acute changes. Hardware is present and is stable. I did do basic labs on him which show ESR and CRP are normal. I discussed with patient this is most likely just an acute inflammatory process. I recommended continue with ibuprofen for discomfort. I will give him orthopedic referral if symptoms persist. Return parameters were discussed with the patient and he verbalized understanding. Case discussed with Dr. Patterson. - Lab Data Result diagrams: 08/31/20 23:49 08/31/20 23:49 Lab Results 08/31/20 08/31/20 Range/Units 23:49 23:49 WBC 12.1 H (3.8-10.6) k/uL RBC 4.80 (4.30-5.90) m/uL Hgb 14.8 (13.0-17.5) gm/dL Hct 42.3 (39.0-53.0) % MCV 88.0 (80.0-100.0) fL MCH 30.8 (25.0-35.0) pg MCHC 35.0 (31.0-37.0) g/dL RDW 12.7 (11.5-15.5) % Plt Count 273 (150-450) k/uL MPV 7.7 Neutrophils % 73 % Lymphocytes % 19 % Monocytes % 4 % Eosinophils % 3 % Basophils % 1 % Neutrophils # 8.8 H (1.3-7.7) k/uL Lymphocytes # 2.3 (1.0-4.8) k/uL Monocytes # 0.5 (0-1.0) k/uL Eosinophils # 0.3 (0-0.7) k/uL Basophils # 0.1 (0-0.2) k/uL ESR 2 (0-15) mm/hr Sodium 138 (137-145) mmol/L Potassium 3.5 (3.5-5.1) mmol/L Chloride 106 (98-107) mmol/L Carbon Dioxide 25 (22-30) mmol/L Anion Gap 7 mmol/L BUN 13 (9-20) mg/dL Creatinine 0.90 (0.66-1.25) mg/dL Est GFR (CKD-EPI)AfAm >90 (>60 ml/min/1.73 sqM) Est GFR (CKD-EPI)NonAf >90 (>60 ml/min/1.73 sqM) Glucose 180 H (74-99) mg/dL Calcium 9.0 (8.4-10.2) mg/dL C-Reactive Protein <5.0 (<10.0) mg/L Disposition Clinical Impression: Left ankle pain Disposition: HOME SELF-CARE Condition: Stable Instructions (If sedation given, give patient instructions): Arthralgia (ED) Additional Instructions: Please return to the Emergency Department if symptoms worsen or any other concerns. X-ray today looks normal and stable. Lab work was normal. Continue to alternate between Motrin and Tylenol for discomfort. Follow up with orthopedics as discussed if symptoms persist. Is patient prescribed a controlled substance at d/c from ED?: No Referrals: Lukas Marcial MD [Primary Care Provider] - 1-2 days Leon Marshall MD [STAFF PHYSICIAN] - 1-2 days
--- NOTE | 2020-09-01 00:03 | XR ---
EXAMINATION TYPE: XR ankle complete LT DATE OF EXAM: 09/01/2020 COMPARISON: 05/14/2016 HISTORY: Ankle pain TECHNIQUE: FINDINGS: 3 views were obtained. There is a plate with screws fixing distal fibula. There are 2 screw s fixing the medial malleolus. Ankle mortise is anatomic. There is an Achilles calcaneal spur. I see no fracture nor dislocation. There is spurring of the anterior and posterior malleolus. IMPRESSION: There is some posttraumatic osteoarthritis. No fracture seen. No adverse change overall c ompared to old exam.
[2020-09-01 00:06] LABS: Basophils # (A) 0.1 k/uL (0-0.2); Basophils % (A) 1 %; Eosinophils # (A) 0.3 k/uL (0-0.7); Eosinophils % (A) 3 %; HCT 42.3 % (39.0-53.0); HGB 14.8 gm/dL (13.0-17.5); Lymphocytes # (A) 2.3 k/uL (1.0-4.8); Lymphocytes % (A) 19 %; MCH 30.8 pg (25.0-35.0); Mean Platelet Volume 7.7; Monocytes # (A) 0.5 k/uL (0-1.0); Monocytes % (A) 4 %; Neutrophils # (A) 8.8 k/uL (1.3-7.7); Neutrophils % (A) 73 %; Platelet Count 273 k/uL (150-450); RDW 12.7 % (11.5-15.5); WBC 12.1 k/uL (3.8-10.6)
[2020-09-01 00:34] LABS: African American GFR (CKD) >90 (>60 ml/min/1.73 sqM); Anion Gap 7 mmol/L; Blood Urea Nitrogen 13 mg/dL (9-20); C Reactive Protein <5.0 mg/L (<10.0); Carbon Dioxide 25 mmol/L (22-30); Chloride 106 mmol/L (98-107); Glucose 180 mg/dL (74-99); Non-African American GFR(CKD) >90 (>60 ml/min/1.73 sqM); Potassium 3.5 mmol/L (3.5-5.1); Sodium 138 mmol/L (137-145)
[2020-09-01 01:15] LABS: Erythrocyte Sedimentation Rate 2 mm/hr (0-15)
[2020-09-01 02:23] VITALS: BP 141/92; PULSE 84; RESP 18
== END 2020-09-01 02:06 | disposition home or self-care (01) ==
LOC: EC 23:04
DX: M25.572 Pain in left ankle and joints of left foot (principal); F17.200 Nicotine dependence, unspecified, uncomplicated
CPT/HCPCS: 36415; 80048; 85652; 85025; 86140; 73610; 99283; 96374; J1885

== ENCOUNTER 2020-11-20 17:05 | Inpatient (IN) | payer OTHER ==
[2020-11-20] MEDS ORDERED: ACETAMINOPHEN TAB 500 MG TAB PO STA (17:20)
[2020-11-20] MEDS ORDERED: IBUPROFEN 600 MG TAB PO STA (17:20)
--- NOTE | 2020-11-20 17:45 | ED ---
General Adult HPI - General Chief complaint: Skin/Abscess/Foreign Body Stated complaint: Fever/Lethargic Time Seen by Provider: 11/20/20 17:10 Source: patient, RN notes reviewed, old records reviewed Mode of arrival: wheelchair Limitations: no limitations - History of Present Illness Initial comments: This is a 45-year-old male who resents to the emergency department stating that since yesterday afternoon a fever and felt extremely weak. Patient also states his right leg has become somewhat red a little bit swollen and painful. Patient denies any cough or difficulty breathing. Patient states she is a smoker however. Patient denies any chest pain or any palpitations. Patient denies abdominal pain patient denies nausea vomiting diarrhea. Patient denies any loss of smell or taste. Patient denies any headache patient denies any neck pain pa tient denies any numbness or weakness. Patient denies lightheadedness or dizziness. - Related Data Home Medications Medication Instructions Recorded Confirmed No Known Home Medications 11/20/20 11/20/20 Allergies Allergy/AdvReac Type Severity Reaction Status Date / Time No Known Allergies Allergy Verified 11/20/20 18:23 Review of Systems ROS Statement: Those systems with pertinent positive or pertinent negative responses have been documented in the HPI. ROS Other: All systems not noted in ROS Statement are negative. Past Medical History Past Medical History: GI Bleed, Osteoarthritis (OA) Additional Past Medical History / Comment(s): HX OF Diverticulitis, colitis, ARTHIRITIS IN NECK, lower GI bleeds. History of Any Multi-Drug Resistant Organisms: MRSA Date of last positivie culture/infection: neck MDRO Source:: 2012 Past Surgical History: Bowel Resection Additional Past Surgical History / Comment(s): NASAL SURGERY. L ANKLE SURGERY 1998. COLONOSCOPies with last one 07/22/16, 08-08-16 LOW ANT BOWEL RESECTION Additional Past Anesthesia/Blood Transfusion Reaction / Comment(s): PT HAS NO ADVERSE REACTION TO ANESTHESIA EXCEPT A"FIGHTER" WHEN I WAKE UP. NEVER RECEIVED BLOOD PRODUCTS. Past Psychological History: Anxiety Smoking Status: Current every day smoker Past Alcohol Use History: None Reported Past Drug Use History: Marijuana - Past Family History Father Family Medical History: No Reported History Additional Family Medical History / Comment(s): Father is healthy. Mother Family Medical History: Diabetes Mellitus Additional Family Medical History / Comment(s): Mother is a borderline diabetic. General Exam - General Exam Comments Initial Comments: GENERAL: Patient is well-developed and well-nourished. Patient is nontoxic and well- hydrated and is in mild distress. ENT: Neck is soft and supple. No significant lymphadenopathy is noted. Oropharynx is clear. Moist mucous membranes. Neck has full range of motion without eliciting any pain. EYES: The sclera were anicteric and conjunctiva were pink and moist. Extraocular movements were intact and pupils were equal round and reactive to light. Eyelids were unremarkable. PULMONARY: Unlabored respirations. Good breath sounds bilaterally. No audible rales rhonchi or wheezing was noted. CARDIOVASCULAR: There is a regular rate and rhythm without any murmurs gallops or rubs. ABDOMEN: Soft and nontender with normal bowel sounds. SKIN: Skin is clear with no lesions or rashes and otherwise unremarkable. NEUROLOGIC: Patient is alert and oriented x3. Cranial nerves II through XII are grossly intact. Motor and sensory are also intact. Normal speech, volume and content. Symmetrical smile. MUSCULOSKELETAL: Right leg is slightly swollen it's mildly erythematous and tender to touch. Patient's pain is more anterior than posterior. LYMPHATICS: No significant lymphadenopathy is noted PSYCHIATRIC: Normal psychiatric evaluation. Limitations: no limitations Course Vital Signs 11/20/20 11/20/20 11/20/20 17:07 18:13 19:41 Temperature 101.8 F H 101 F H 98 F Pulse Rate 112 H 115 H 105 H Respiratory 18 22 20 Rate Blood Pressure 160/86 130/72 139/78 O2 Sat by Pulse 97 98 94 L Oximetry Medical Decision Making - Medical Decision Making EKG shows sinus tachycardia at 119 bpm OK interval 154 QRS is 88 QT interval 02 QTC is 424. Patient's EKG shows no ST segment elevation. Patient's ideal body weight is 86 kg. Patient lactic acid was elevated sed rate extremely high white count patient is tachycardic. Patient is considered septic at this point time. Started the patient 2 g Rocephin and started ankle. I will back into the room to reevaluate the patient he was sleeping he was a lit tle difficult to arouse but once he was awake he was alert and oriented 3. Patient still complained of feeling exhausted and complaining of right leg pain. I spoke with Dr. Isidro and admitted the patient I wrote admitting orders I continued antibiotics on the floor and I consult to Dr. Yoder infectious disease. - Lab Data Result diagrams: 11/20/20 17:35 11/20/20 17:35 Lab Results 11/20/20 11/20/20 11/20/20 Range/Units 17:35 17:35 17:35 WBC 26.2 H (3.8-10.6) k/uL RBC 5.16 (4.30-5.90) m/uL Hgb 15.2 (13.0-17.5) gm/dL Hct 45.1 (39.0-53.0) % MCV 87.5 (80.0-100.0) fL MCH 29.5 (25.0-35.0) pg MCHC 33.7 (31.0-37.0) g/dL RDW 13.7 (11.5-15.5) % Plt Count 256 (150-450) k/uL MPV 7.6 Neutrophils % 94 % Lymphocytes % 2 % Monocytes % 3 % Eosinophils % 0 % Basophils % 1 % Neutrophils # 24.4 H (1.3-7.7) k/uL Lymphocytes # 0.6 L (1.0-4.8) k/uL Monocytes # 0.8 (0-1.0) k/uL Eosinophils # 0.0 (0-0.7) k/uL Basophils # 0.2 (0-0.2) k/uL PT 11.3 (9.0-12.0) sec INR 1.1 (<1.2) APTT 26.0 (22.0-30.0) sec Sodium 134 L (137-145) mmol/L Potassium 4.2 (3.5-5.1) mmol/L Chloride 100 (98-107) mmol/L Carbon Dioxide 24 (22-30) mmol/L Anion Gap 10 mmol/L BUN 9 (9-20) mg/dL Creatinine 0.94 (0.66-1.25) mg/dL Est GFR (CKD-EPI)AfAm >90 (>60 ml/min/1.73 sqM) Est GFR (CKD-EPI)NonAf >90 (>60 ml/min/1.73 sqM) Glucose 171 H (74-99) mg/dL Plasma Lactic Acid Branden (0.7-2.0) mmol/L Calcium 9.1 (8.4-10.2) mg/dL Total Bilirubin 0.7 (0.2-1.3) mg/dL AST 23 (17-59) U/L ALT 31 (4-49) U/L Alkaline Phosphatase 75 (38-126) U/L Total Protein 6.9 (6.3-8.2) g/dL Albumin 4.1 (3.5-5.0) g/dL Coronavirus (PCR) (Not Detectd) 11/20/20 11/20/20 Range/Units 17:35 17:35 WBC (3.8-10.6) k/uL RBC (4.30-5.90) m/uL Hgb (13.0-17.5) gm/dL Hct (39.0-53.0) % MCV (80.0-100.0) fL MCH (25.0-35.0) pg MCHC (31.0-37.0) g/dL RDW (11.5-15.5) % Plt Count (150-450) k/uL MPV Neutrophils % % Lymphocytes % % Monocytes % % Eosinophils % % Basophils % % Neutrophils # (1.3-7.7) k/uL Lymphocytes # (1.0-4.8) k/uL Monocytes # (0-1.0) k/uL Eosinophils # (0-0.7) k/uL Basophils # (0-0.2) k/uL PT (9.0-12.0) sec INR (<1.2) APTT (22.0-30.0) sec Sodium (137-145) mmol/L Potassium (3.5-5.1) mmol/L Chloride (98-107) mmol/L Carbon Dioxide (22-30) mmol/L Anion Gap mmol/L BUN (9-20) mg/dL Creatinine (0.66-1.25) mg/dL Est GFR (CKD-EPI)AfAm (>60 ml/min/1.73 sqM) Est GFR (CKD-EPI)NonAf (>60 ml/min/1.73 sqM) Glucose (74-99) mg/dL Plasma Lactic Acid Branden 2.4 H* (0.7-2.0) mmol/L Calcium (8.4-10.2) mg/dL Total Bilirubin (0.2-1.3) mg/dL AST (17-59) U/L ALT (4-49) U/L Alkaline Phosphatase (38-126) U/L Total Protein (6.3-8.2) g/dL Albumin (3.5-5.0) g/dL Coronavirus (PCR) Not Detected (Not Detectd) Critical Care Time Critical Care Time: Yes Total Critical Care Time: 35 Disposition Clinical Impression: Cellulitis, leg, Sepsis Disposition: ADMITTED IP TO THIS HOSP Referrals: Lukas Marcial MD [Primary Care Provider] - 1-2 days Time of Disposition: 19:44
[2020-11-20] MEDS: SODIUM CHLORIDE 0.9% 500 ML 500 ML IV SCH ×2 (17:52→18:37)
[2020-11-20 17:54] LABS: Basophils # (A) 0.2 k/uL (0-0.2); Basophils % (A) 1 %; Eosinophils % (A) 0 %; HCT 45.1 % (39.0-53.0); HGB 15.2 gm/dL (13.0-17.5); Lymphocytes # (A) 0.6 k/uL (1.0-4.8); Lymphocytes % (A) 2 %; MCH 29.5 pg (25.0-35.0); MCHC 33.7 g/dL (31.0-37.0); MCV 87.5 fL (80.0-100.0); Mean Platelet Volume 7.6; Monocytes # (A) 0.8 k/uL (0-1.0); Monocytes % (A) 3 %; Neutrophils # (A) 24.4 k/uL (1.3-7.7); Neutrophils % (A) 94 %; Platelet Count 256 k/uL (150-450); RBC 5.16 m/uL (4.30-5.90); RDW 13.7 % (11.5-15.5); WBC 26.2 k/uL (3.8-10.6)
[2020-11-20 18:02] LABS: ALT 31 U/L (4-49); AST 23 U/L (17-59); African American GFR (CKD) >90 (>60 ml/min/1.73 sqM); Albumin 4.1 g/dL (3.5-5.0); Alkaline Phosphatase 75 U/L (38-126); Anion Gap 10 mmol/L; Blood Urea Nitrogen 9 mg/dL (9-20); Calcium 9.1 mg/dL (8.4-10.2); Carbon Dioxide 24 mmol/L (22-30); Chloride 100 mmol/L (98-107); Glucose 171 mg/dL (74-99); Non-African American GFR(CKD) >90 (>60 ml/min/1.73 sqM); Potassium 4.2 mmol/L (3.5-5.1); Sodium 134 mmol/L (137-145); Total Bilirubin 0.7 mg/dL (0.2-1.3); Total Protein 6.9 g/dL (6.3-8.2)
--- NOTE | 2020-11-20 18:12 | XR ---
EXAMINATION TYPE: XR chest 2V DATE OF EXAM: 11/20/2020 COMPARISON: 08/09/2016 HISTORY: Fever and lethargy TECHNIQUE: FINDINGS: Heart and mediastinum are normal. Lungs are clear. Diaphragm is normal. Bony thorax is inta ct. There is no evidence of pleural effusion. There are chest leads. IMPRESSION: No active cardiopulmonary disease. There is clearing of the mild atelectasis in the left midlung compared to old exam.
[2020-11-20 18:17] LABS: INR 1.1 (<1.2); Prothrombin Time 11.3 sec (9.0-12.0)
[2020-11-20] MEDS ORDERED: SODIUM CHLORIDE 0.9% 2,000 ML IV ONE (19:11)
[2020-11-20] MEDS ORDERED: SODIUM CHLORIDE 0.9% 500 ML 500 ML IV ONE (19:11)
[2020-11-20] MEDS ORDERED: cefTRIAXone IN SWFI 1,000 MG/10 ML SYRINGE IVP STA (19:11)
[2020-11-20] MEDS ORDERED: VANCOMYCIN IV PER PHARMACY 1 EACH MISC MISCELLANE PRN (19:13)
--- NOTE | 2020-11-20 19:34 | US ---
EXAMINATION TYPE: US venous doppler duplex LE RT DATE OF EXAM: 11/20/2020 7:24 PM COMPARISON: US CLINICAL HISTORY: Swollen red tender leg. Swollen right leg x 1 day. No hx of DVT. Patient does not t denton blood thinners. SIDE PERFORMED: Right TECHNIQUE: The lower extremity deep venous system is examined utilizing real time linear array sonog oren with graded compression, doppler sonography and color-flow sonography. VESSELS IMAGED: Common Femoral Vein Deep Femoral Vein Greater Saphenous Vein * Femoral Vein Popliteal Vein Small Saphenous Vein * Proximal Calf Veins (* superficial vessels) Right Leg: No evidence of DVT in veins imaged at this time from prox calf veins to CFV/GSV. Hypoecho ic areas with hyperechoic centers and vascular moriah seen within the right groin measuring: #1: 3.9 x 2.5 x 1.3 cm. #2: 3.5 x 1.5 x 1.4 cm. IMPRESSION: There are some right inguinal prominent lymph nodes. No evidence of deep vein thrombosis in the right leg.
[2020-11-20] MEDS ORDERED: VANCOMYCIN 2,000 MG in SODIUM CHLORIDE 0.9% 500 ML 500 ML IVPB ONE (19:45)
[2020-11-20 21:16] VITALS: RESP 18
[2020-11-20 21:35] LABS: Glucose,Whole Blood 116 mg/dL (75-99)
[2020-11-20] MEDS: SODIUM CHLORIDE 0.9% 1,000 ML IV SCH (22:53)
[2020-11-21] MEDS ORDERED: VANCOMYCIN 2,000 MG in SODIUM CHLORIDE 0.9% 500 ML 500 ML IVPB SCH (04:00)
[2020-11-21] MEDS: SODIUM CHLORIDE 0.9% 1,000 ML IV SCH (04:11)
[2020-11-21 04:51] VITALS: BP 136/88; PULSE 93; TEMP 98.8
[2020-11-21] MEDS ORDERED: PANTOPRAZOLE 40 MG/10 ML VIAL IV SCH (09:00)
--- NOTE | 2020-11-21 20:38 | HP ---
HISTORY AND PHYSICAL CHIEF COMPLAINT: Cellulitis of the right lower leg. HISTORY OF PRESENT ILLNESS: This is the first known admission for this gentleman who has had some problems with the right lower leg in the past. He had a similar episode about a year ago. He recently abraded his right saldana and the episode started again. He presented to the emergency room with chills and extensive redness, swelling, tenderness and edema on the right leg from the knee down. REVIEW OF SYSTEMS: He has had no headaches, neurologic problems, difficulty with vision or hearing, chest pain, shortness of breath, cough, hemoptysis, murmurs, rheumatic fever, hypertension, heart disease, orthopnea, PND, abdominal pain, nausea, vomiting, hematemesis, melena, hematochezia, colitis, diverticulosis, rectal bleeding, renal failure, hematuria, frequency, urgency, dysuria, diabetes, etc. Past medical history, family history, and personal and social histories are unremarkable and noncontributory. He is alert. He is NOT ALLERGIC TO ANY MEDICATION and not taking any. The only surgery that he has had is on his left ankle in the past. He smokes a pack of cigarettes a day. PHYSICAL EXAMINATION: Blood pressure 142/90 with a pulse of 73 and respirations of 21. He is afebrile. In general he appeared to be well developed, well nourished, in no acute distress. Skin color is normal. Skin is warm and dry. Lymph nodes are not enlarged. Head, ears, eyes, nose, mouth and throat were normal. Neck veins were not distended. Thyroid was not enlarged. Chest was clear. Cardiac exam was normal. Abdomen was soft and nontender. Extremities normal except for the extensive cellulitis in the right leg from the knee on down. The toes are viable. Neurologically he is intact. He is admitted to the hospital with the diagnosis: Cellulitis, right lower leg. PLAN: 1. Bedrest. 2. IV fluids. 3. IV antibiotics. MMODL / IJN: [id number] /
--- NOTE | 2020-11-22 07:28 | DS ---
DISCHARGE SUMMARY CHIEF COMPLAINT: Cellulitis of right lower extremity. HISTORY OF PRESENT ILLNESS AND PHYSICAL EXAMINATION: Details of this man's history and physical can be found in the initial workup. LABORATORY STUDIES: While he was in a hospital he had laboratory studies, details of which can be found in the laboratory section of his chart. COURSE IN HOSPITAL: After admission he was placed on bedrest, started on intravenous fluids and IV antibiotic. By the following morning he was expressing a great anxiety about getting back home where he had a pet and his house was not secured. He signed out AGAINST MEDICAL ADVICE and antibiotics will be sent to the pharmacy and agreed to come to the office the next day for followup. FINAL DIAGNOSIS: Cellulitis of the right lower leg. OPERATIONS: None. CONSULTATION: None. He is improved. TIARA / RANJANA: [id number] /
[2020-11-22] MEDS ORDERED: VANCOMYCIN TROUGH DUE 1 EACH MISC MISCELLANE ONE (11:00)
--- NOTE | 2020-11-22 13:07 | CDI ---
Documentation Clarification Form Date: 11/22/2020 01:05:00 PM From: Trudy Gilman CCS Phone: If you have a question about this query, please contact Janice Russell Manager Rental at [phone] between 8am and 5pm Admit Date: 11/20/2020 07:48:00 PM Patient Name: Jorge Castro Visit Number: [id number] Discharge Date: 11/21/2020 09:45:00 AM ATTENTION: The Clinical Documentation Specialists (CDI) and [facility] Coding Staff appreciate your assistance in clarifying documentation. Please respond to the clarification below the line at the bottom and electronically sign. The CDI & [facility] Coding staff will review the response and follow-up if needed. Please note: Queries are made part of the Legal Health Record. If you have any questions, please contact the author of this message via ITS. Dr. Lukas Marcial The diagnosis sepsis was documented in the ED notes, but is not noted in subsequent documentation. History/Risk Factors: Cellulitis R Leg, DJD, Tobacco Clinical Indicators: Tachycardia, Elevated WBC, Elevated lactic acid, Temp 101.8 Labs: WBC 26.2, Lactic Acid 2.4 Vitals: Temp 101.8, SC 112, RR 18, BP 160/86, O2 Sat 97 Treatment: Rocephin 1,000 mg IVP ONCE STA, Rocephin 1 gm IV, Vancomycin 2,000 mg IV Please clarify if the sepsis was Present/active this admission Treated and resolved this admission Ruled out Other, please specify Clinically unable to determine MTDD
--- NOTE | 2020-11-24 18:33 | MISC ---
MISCELLANOUS REPORT QUERY: Sepsis ruled out. MMODL / IJN: [id number] /
== END 2020-11-21 09:45 | disposition left against medical advice (07) | DRG 603 ==
LOC: EC 17:05 → 5NMEDONC 19:48
PROVIDERS: ADMIT Family Medicine; ATTEND Family Medicine
DX: L03.115 Cellulitis of right lower limb (principal); Z20.822 Contact with and (suspected) exposure to COVID-19; M19.90 Unspecified osteoarthritis, unspecified site; F41.9 Anxiety disorder, unspecified; F17.210 Nicotine dependence, cigarettes, uncomplicated; R00.0 Tachycardia, unspecified; R70.0 Elevated erythrocyte sedimentation rate; Z87.19 Personal history of other diseases of the digestive system; Z86.14 Personal history of Methicillin resistant Staphylococcus aureus infection; Z90.49 Acquired absence of other specified parts of digestive tract; Z83.3 Family history of diabetes mellitus
CPT/HCPCS: 71046; 80053; 83605; 85025; 85610; 85730; 87040; 87635; 93005; 96361; 96365; 96375; 99291